=== PATIENT | male | born 1945 | race Caucasian/White ===

== ENCOUNTER 2018-11-16 14:11 | Outpatient (CLI) | payer MEDICARE, OTHER | END 2018-11-16 14:12 | disposition home or self-care (01) | LOC: RT 14:11 | PROVIDERS: ATTEND Orthopaedic Surgery | DX: Z01.810 Encounter for preprocedural cardiovascular examination (principal) | CPT/HCPCS: 93005 ==

== ENCOUNTER 2018-12-10 13:23 | Outpatient (CLI) | payer MEDICARE, OTHER ==
--- NOTE | 2018-12-11 11:01 | XRAY Report ---
Reason: PAIN IN LEFT HIP JOINT Procedure Date: 12/10/2018 Accession Number: [id number] / [id number] Procedure: XR - Hip w/Pelvis 2-3V LT CPT Code: FULL RESULT: EXAM: LEFT HIP RADIOGRAPHY EXAM DATE: 12/10/2018 02:11 PM. CLINICAL HISTORY: Pain in left hip joint. COMPARISON: None. TECHNIQUE: AP pelvis and left frog-leg. FINDINGS: Bones: Subjectively osteopenic. Lower lumbar spinal fusion hardware is incompletely evaluated. No fractures or bone lesion. Joints: There is joint space narrowing of both the left and right femoral acetabular articulations, moderate. No dislocation. Soft Tissues: Peripheral vascular disease is noted in the form of vessel calcification. IMPRESSION: Degenerative changes without evidence of fracture or dislocation. RADIA
== END 2018-12-10 13:24 | disposition home or self-care (01) ==
LOC: DI 13:23
PROVIDERS: ATTEND Internal Medicine
DX: M16.12 Unilateral primary osteoarthritis, left hip (principal)

== ENCOUNTER 2019-02-01 11:28 | Outpatient (CLI) | payer MEDICARE, OTHER ==
--- NOTE | 2019-02-01 14:50 | XRAY Report ---
Reason: PNEUMONITIS DUE TO INHALATION OF FOOD AND VOMIT Procedure Date: 02/01/2019 Accession Number: [id number] / [id number] Procedure: XR - Chest 2 View X-Ray CPT Code: 36634 FULL RESULT: EXAM: CHEST RADIOGRAPHY EXAM DATE: 02/01/2019 12:36 PM. CLINICAL HISTORY: PNEUMONITIS DUE TO INHALATION OF FOOD AND VOMIT. COMPARISON: None. TECHNIQUE: 2 views. FINDINGS: Lungs/Pleura: Coarse lung markings. Scarring or atelectasis left base. Possible minimal infiltrate in left base. No consolidation, effusion, or pneumothorax. Mediastinum: Heart and mediastinal contours are unremarkable. Other: Osteopenia, scoliosis, degenerative changes. IMPRESSION: Possible small left basilar infiltrate. RADIA
== END 2019-02-01 11:29 | disposition home or self-care (01) ==
LOC: DI 11:28
PROVIDERS: ATTEND Nurse Practitioner Family
DX: J69.8 Pneumonitis due to inhalation of other solids and liquids (principal); T75.1XXA Unspecified effects of drowning and nonfatal submersion, initial encounter
CPT/HCPCS: 71046

== ENCOUNTER 2019-05-21 09:48 | Outpatient (CLI) | payer MEDICARE, OTHER ==
--- NOTE | 2019-05-22 15:08 | XRAY Report ---
Reason: SHOULDER PAIN, UPPER CHEST PAIN,CERVICALGIA Procedure Date: 05/21/2019 Accession Number: [id number] / [id number] Procedure: XRS - Cervical Spine 2 View CPT Code: FULL RESULT: EXAM: CERVICAL SPINE RADIOGRAPHY EXAM DATE: 05/21/2019 11:00 AM. CLINICAL HISTORY: Shoulder pain, upper chest pain, cervicalgia. COMPARISONS: None. TECHNIQUE: 3 views. FINDINGS: Alignment: Relative straightening of the normal cervical lordosis without spondylolisthesis or overt scoliosis. Bones: The cervical vertebral bodies and posterior elements are well visualized from the skull base through C7-T1. No fractures or bone lesions. Disks: Multilevel loss of disk space height with disk osteophyte complex formation, most pronounced in the lower lumbar spine. Facets: Multilevel facet arthropathy with lateral mass hypertrophy throughout the cervical spine. Soft Tissues: Normal. No prevertebral soft tissue swelling. The visualized lung apices are clear. IMPRESSION: Marked degenerative changes throughout the cervical spine. RADIA
--- NOTE | 2019-05-22 15:09 | XRAY Report ---
Reason: SHOULDER PAIN,UPPER CHEST PAIN,CERVICALGIA Procedure Date: 05/21/2019 Accession Number: [id number] / [id number] Procedure: XRS - Chest 2 View X-Ray CPT Code: 38981 FULL RESULT: EXAM: CHEST RADIOGRAPHY EXAM DATE: 05/21/2019 11:00 AM. CLINICAL HISTORY: Shoulder pain, upper chest pain, cervicalgia. COMPARISON: CHEST 2 VIEW 02/01/2019 12:26 PM. TECHNIQUE: 2 views. FINDINGS: Lungs/Pleura: No focal opacities evident. No pleural effusion. No pneumothorax. Normal volumes. Mediastinum: Heart and mediastinal contours are unremarkable. Other: None. IMPRESSION: Normal 2-view chest radiography. RADIA
--- NOTE | 2019-05-23 03:24 | XRAY Report ---
Reason: SHOULDER PAIN, UPPER CHEST PAIN,CERVICALGIA Procedure Date: 05/21/2019 Accession Number: [id number] / [id number] Procedure: XRS - Shoulder 2 View BILAT CPT Code: FULL RESULT: EXAM: BILATERAL SHOULDER RADIOGRAPHY EXAM DATE: 05/21/2019 11:00 AM. CLINICAL HISTORY: SHOULDER PAIN, UPPER CHEST Pain, cervicalgia. COMPARISON: CHEST 2 VIEW 05/21/2019 10:20 AM. TECHNIQUE: 3 views. FINDINGS: Bones: Normal. No fracture or bone lesion. Joints: Glenohumeral joints are congruent. Moderate to advanced degenerative changes of the acromioclavicular joints bilaterally. Soft tissues: The visualized hemithorax is unremarkable. No soft tissue swelling. IMPRESSION: 1. No acute fractures or malalignment. 2. Moderate to advanced degenerative changes of the acromioclavicular joints bilaterally. RADIA
== END 2019-05-21 09:49 | disposition home or self-care (01) ==
LOC: DI.S 09:48
PROVIDERS: ATTEND Internal Medicine
DX: M19.012 Primary osteoarthritis, left shoulder (principal); M19.011 Primary osteoarthritis, right shoulder; M47.812 Spondylosis without myelopathy or radiculopathy, cervical region; R07.9 Chest pain, unspecified
CPT/HCPCS: 71046; 72040

== ENCOUNTER 2019-06-12 09:55 | Outpatient (CLI) | payer MEDICARE, OTHER ==
--- NOTE | 2019-06-13 05:49 | MRI Report ---
Reason: CERVICAL ARTHRITIS Procedure Date: 06/12/2019 Accession Number: [id number] / [id number] Procedure: MRI - Cervical Spine W/O CPT Code: FULL RESULT: EXAM: MRI CERVICAL SPINE WITHOUT CONTRAST EXAM DATE: 06/12/2019 11:34 AM. CLINICAL HISTORY: CERVICAL ARTHRITIS. COMPARISONS: CERVICAL SPINE 2 VIEW 05/21/2019 10:48 AM. TECHNIQUE: Multiplanar, multisequence T1-weighted and fluid-sensitive sequences of the cervical spine without contrast. Other: None. FINDINGS: Neurologic Structures: The visualized posterior fossa structures are unremarkable. No signal abnormality in the visualized spinal cord. There is cord flattening at multiple cervical levels from C3-C4 through C6-C7 due to spondylosis and spinal stenosis as detailed below. Alignment: No scoliosis or spondylolisthesis. Bone Marrow: No gross fractures or bone lesions. No marrow edema. Interspace Levels/Facets: C1-C2: Unremarkable. C2-C3: There is disk desiccation and mild disk bulging. No cord compression. Uncovertebral and facet hypertrophy causes mild left foraminal stenosis. No central canal or significant right foraminal stenosis. C3-C4: Mild disk narrowing and desiccation. Posterior endplate spurring and disk bulging along with bilateral ligamentum flavum thickening causes a moderate degree of central canal stenosis. Central canal measures approximately 6-7 mm in AP dimension. The cord appears moderately flattened. Uncovertebral and facet hypertrophy causes moderate bilateral foraminal stenosis. C4-C5: There is mild anterior spurring. There is mild to moderate disk narrowing and desiccation. Posterior spurring and disk bulging along with right greater than left ligamentum flavum thickening produces moderate central canal stenosis and cord flattening. Uncovertebral facet hypertrophy causes moderate to severe bilateral foraminal. C5-C6: There is anterior spurring and moderate disk narrowing and desiccation. There is posterior endplate spurring and disk bulging with a superimposed central disk protrusion measuring 4 mm in AP extent. This results in mild to moderate flattening of the ventral cord surface and mild to moderate central canal stenosis. Uncovertebral and facet hypertrophy results in moderate to severe bilateral foraminal stenosis. C6-C7: There is moderate disk narrowing and desiccation. Posterior endplate spurring and disk bulging effaces the ventral thecal sac. Slight flattening of the ventral cord surface on the right. Central canal is mildly narrowed. Uncovertebral and facet hypertrophy results in moderate to severe bilateral foraminal stenosis. C7-T1: There is moderate disk narrowing desiccation. There is a mild disk bulge effacing the ventral thecal sac. No cord compression or significant central canal stenosis. Uncinate hypertrophy results in moderate bilateral foraminal stenosis. Musculature: Unremarkable. Other: The paravertebral and prevertebral soft tissues are normal. IMPRESSION: 1. There is multilevel cervical spondylosis and degenerative disk disease/disk bulging superimposed on a congenitally small cervical spinal canal as detailed above. 2. At the C3-C4 and C4-C5 levels, spondylosis and disk bulging results in a moderate degree of central canal stenosis and cord flattening. There is also moderate to severe bilateral foraminal stenosis at both levels. 3. At C5-C6, there is spondylosis and disk bulging with a superimposed 4 mm central disk protrusion. This results in mild to moderate canal stenosis with flattening of the ventral cord surface. There is moderate to severe bilateral foraminal stenosis. 4. At C6-C7, spondylosis and disk bulging results in mild central canal stenosis and moderate to severe bilateral foraminal stenosis. There is only slight flattening of the ventral cord surface on the right at this level. 5. At C7-T1, there is moderate bilateral foraminal narrowing. No cord compression or significant canal stenosis. 6. No signal abnormality is identified in the cervical cord. RADIA
== END 2019-06-12 09:56 | disposition home or self-care (01) ==
LOC: DI 09:55
PROVIDERS: ATTEND Internal Medicine
DX: M50.31 Other cervical disc degeneration, high cervical region (principal); M48.02 Spinal stenosis, cervical region; M47.812 Spondylosis without myelopathy or radiculopathy, cervical region; M50.222 Other cervical disc displacement at C5-C6 level
CPT/HCPCS: 72141

== ENCOUNTER 2019-11-29 07:22 | Outpatient (CLI) | payer MEDICARE, OTHER ==
[2019-11-29 10:01] LABS: BASOPHILS # (AUTO) 0.1 10^3/uL (0.0-0.1); BASOPHILS % (AUTO) 0.6 %; EOSINOPHILS # (AUTO) 0.1 10^3/uL (0.0-0.7); EOSINOPHILS % (AUTO) 1.5 %; HGB - HEMOGLOBIN 14.8 g/dL (14.0-18.0); LYMPHOCYTES # (AUTO) 1.8 10^3/uL (1.5-3.5); LYMPHOCYTES % (AUTO) 21.7 %; MEAN CORPUSCULAR HEMOGLOBIN 30.3 pg (27.0-31.0); MEAN CORPUSCULAR HGB CONC 33.3 g/dL (32.0-36.0); MEAN CORPUSCULAR VOLUME 90.8 fL (80.0-94.0); MEAN PLATELET VOLUME 9.4 fL (7.4-11.4); MONOCYTES # (AUTO) 0.5 10^3/uL (0.0-1.0); MONOCYTES % (AUTO) 6.3 %; NEUTROPHILS # (AUTO) 5.6 10^3/uL (1.5-6.6); NEUTROPHILS % (AUTO) 69.5 %; PLT - PLATELET COUNT 209 10^3/uL (130-450); RED BLOOD COUNT 4.89 10^6/uL (4.70-6.10); RED CELL DISTRIBUTION WIDTH 12.7 % (12.0-15.0); WHITE BLOOD COUNT 8.1 x10^3/uL (4.8-10.8)
[2019-11-29 10:09] LABS: HB2 TOTAL 14.5 g/dL; HEMOGLOBIN A1C 0.51 g/dL; HEMOGLOBIN A1C % 5.4 % (4.6-6.2)
[2019-11-29 10:26] LABS: ALBUMIN 4.4 g/dL (3.2-5.5); ALBUMIN/GLOBULIN RATIO 1.4 (1.0-2.2); ALKALINE PHOSPHATASE 55 IU/L (42-121); ALT ALANINE AMINOTRANSFERASE < 10 IU/L (10-60); AST ASPARTATE AMINOTRANSFERASE 40 IU/L (10-42); BILIRUBIN,TOTAL 0.9 mg/dL (0.2-1.0); BUN - BLOOD UREA NITROGEN 18 mg/dL (6-20); CALCIUM 9.3 mg/dL (8.5-10.3); CARBON DIOXIDE - CO2 29 mmol/L (21-32); CHLORIDE 104 mmol/L (101-111); CHOL/HDL RATIO 2.9 (<5.0); CHOLESTEROL 158 mg/dL; CREATININE 0.7 mg/dL (0.6-1.2); CRP HIGH SENSITIVITY 0.9 mg/L; GFR - MDRD 111 (>89); GLUCOSE 95 mg/dL (70-100); HDL CHOLESTEROL 54 mg/dL; LDL CHOLESTEROL,CALCULATED 92 mg/dL; LDL/HDL RATIO 1.7 (<3.6); SODIUM 143 mmol/L (135-145); TOTAL PROTEIN 7.6 g/dL (6.7-8.2); VLDL CHOLESTEROL 12 mg/dL
[2019-11-29 10:28] LABS: PSA TOTAL 0.93 ng/mL (0.000-2.000)
[2019-11-29 10:32] LABS: FREE T3 2.71 pg/mL (2.5-3.9)
[2019-11-29 10:35] LABS: THYROID STIMULATING HORMONE 2.84 uIU/mL (0.34-5.60)
[2019-11-29 10:37] LABS: FREE T4 (FREE THYROXINE) 0.6 ng/dL (0.58-1.64)
== END 2019-11-29 07:23 | disposition home or self-care (01) ==
LOC: LAB.S 07:22
PROVIDERS: ATTEND Naturopath
DX: Z00.01 Encounter for general adult medical examination with abnormal findings (principal); Z12.5 Encounter for screening for malignant neoplasm of prostate; Z13.0 Encounter for screening for diseases of the blood and blood-forming organs and certain disorders involving the immune mechanism; Z13.1 Encounter for screening for diabetes mellitus; Z13.21 Encounter for screening for nutritional disorder; Z13.220 Encounter for screening for lipoid disorders; Z13.6 Encounter for screening for cardiovascular disorders; G20 Parkinson's disease
CPT/HCPCS: 36415; 80053; 80061; 81599; 82306; 83036; 83520; 83721; 84153; 84439; 84443; 84481; 84482; 85025; 86038; 86039; 86141; 86376

== ENCOUNTER 2020-01-15 17:50 | Outpatient (CLI) | payer MEDICARE, OTHER | END 2020-01-15 17:51 | disposition home or self-care (01) | LOC: COV 17:50 | PROVIDERS: ATTEND Family Medicine | DX: R05 Cough (principal); R50.9 Fever, unspecified ==

== ENCOUNTER 2020-06-10 13:13 | Outpatient (CLI) | payer MEDICARE, OTHER ==
--- NOTE | 2020-06-10 15:26 | Ultrasound Report ---
PROCEDURE: Carotid Doppler Complete INDICATIONS: CVA TECHNIQUE: Color and pulse Doppler interrogation was performed of both carotid systems, with image documentation and velocity measurements. COMPARISON: None. FINDINGS: Right side: Common carotid artery peak systolic velocity: 89 cm/sec. Internal carotid artery peak systolic velocity: 111 cm/sec. Internal carotid artery end diastolic velocity: 19 cm/sec. External carotid artery peak systolic velocity: 12 cm/sec. ICA/CCA peak systolic ratio: 1.2 . Wells scale imaging description: Minimal soft plaque Percent internal carotid artery stenosis: Less than 50% stenosis . Vertebral artery: Flow direction is antegrade. Left side: Common carotid artery peak systolic velocity: 116 cm/sec. Internal carotid artery peak systolic velocity: 97 cm/sec. Internal carotid artery end diastolic velocity: 17 cm/sec. External carotid artery peak systolic velocity: 154 cm/sec. ICA/CCA peak systolic ratio: 0.8 . Wells scale imaging description: Moderate calcific and soft plaque Percent internal carotid artery stenosis: Less than 50% stenosis . Vertebral artery: Flow direction is antegrade. IMPRESSION: Less than 50% stenosis of each proximal internal carotid artery, vertebral arterial flow is antegrade in direction. The estimate of stenosis included in the report of the imaging study was calculated using the NASCET method Reviewed by: Dom Villanueva MD on 06/10/2020 3:25 PM PDT Approved by: Dom Villanueva MD on 06/10/2020 3:25 PM PDT Station ID: [id number]
== END 2020-06-10 13:14 | disposition home or self-care (01) ==
LOC: DI 13:13
PROVIDERS: ATTEND Psychiatry & Neurology Neurology
DX: I63.9 Cerebral infarction, unspecified (principal)
CPT/HCPCS: 93880

== ENCOUNTER 2020-08-15 16:11 | Outpatient (CLI) | payer MEDICARE, OTHER | END 2020-08-15 16:12 | disposition critical access hospital (66) | LOC: EMS 16:11 | PROVIDERS: ATTEND Surgery | DX: S89.92XA Unspecified injury of left lower leg, initial encounter (principal); S01.312A Laceration without foreign body of left ear, initial encounter; W19.XXXA Unspecified fall, initial encounter; Y93.K9 Activity, other involving animal care; Y92.481 Parking lot as the place of occurrence of the external cause | CPT/HCPCS: A0425; A0427 ==

== ENCOUNTER 2020-08-15 16:48 | Inpatient (IN) | payer MEDICARE, OTHER ==
[2020-08-15] MEDS ORDERED: HYDROmorphone 1 MG/ML CARPUJECT IVP STA ×2 (17:19→18:17)
[2020-08-15] MEDS ORDERED: CARBIDOPA/LEVODOPA ER 50 MG/200 MG TABLET PO STA (17:20)
--- NOTE | 2020-08-15 17:31 | ED Physician Documentation ---
History of Present Illness - Stated complaint Stated Complaint: GLF - Chief complaint Chief Complaint: Trauma Ext - History obtained from History obtained from: Patient, EMS - History of Present Illness Timing: Today Pain level max: 8 Pain level now: 8 - Additonal information Additional information: 75-year-old male presents to the emergency department after a ground-level fall. He was walking in a parking lot when he tripped, fell and injured his left hip. Struck his head and neck as well. Has Parkinson's. Worse with movement, better with rest. Review of Systems Constitutional: denies: Fever, Chills Nose: denies: Rhinorrhea / runny nose, Congestion Cardiac: denies: Calf pain Respiratory: denies: Cough GI: denies: Nausea, Vomiting PD PAST MEDICAL HISTORY - Past Medical History Past Medical History: Yes Neuro: Parkinson's Musculoskeletal: Chronic back pain - Past Surgical History Past Surgical History: Yes Ortho: Spine surgery - Present Medications Home Medications: Ambulatory Orders Medication Instructions Recorded Confirmed Amantadine HCl [Amantadine] 100 mg PO DAILY 08/15/20 08/15/20 Carbidopa/Levodopa ER 50/200 1 each PO BID 08/15/20 08/15/20 [Sinemet Cr 50 mg/200 mg] - Allergies Allergies/Adverse Reactions: Allergies Allergy/AdvReac Type Severity Reaction Status Date / Time No Known Drug Allergies Allergy Verified 08/15/20 17:02 - Social History Does the pt smoke?: No Smoking Status: Never smoker Does the pt drink ETOH?: No Does the pt have substance abuse?: No Substance Use and Type: Marijuana - Immunizations Immunizations are current?: Yes PD ED PE NORMAL - Vitals Vital signs reviewed: Yes - General General: Alert and oriented X 3, No acute distress, Well developed/nourished - HEENT HEENT: Atraumatic, PERRL, Ears normal, Moist mucous membranes - Neck Neck: Supple, no meningeal sign, Other (mild TTP upper C-spine. no step off or deformity. ) - Cardiac Cardiac: RRR, Strong equal pulses - Respiratory Respiratory: No respiratory distress, Clear bilaterally - Abdomen Abdomen: Soft, Non tender, Non distended - Back Back: No spinal TTP - Derm Derm: Warm and dry - Extremities Extremities: No edema, No calf tenderness / cord - Neuro Neuro: Alert and oriented X 3, senior program manager 2-12 intact, No motor deficit, No sensory deficit, Normal speech Eye Opening: Spontaneous Motor: Obeys Commands Verbal: Oriented GCS Score: 15 - Psych Psych: Normal mood, Normal affect Results - Vitals Vitals: Vital Signs - 24 hr 08/15/20 08/15/20 08/15/20 16:50 17:04 17:32 Temperature 36.5 C 36.5 C 36.5 C Heart Rate 86 86 91 Respiratory 30 H 30 H 22 Rate Blood Pressure 181/85 H 181/85 H 155/74 H O2 Saturation 99 99 100 08/15/20 08/15/20 08/15/20 18:02 18:30 18:59 Temperature 36.5 C 36.5 C 36.5 C Heart Rate 88 91 89 Respiratory 24 24 20 Rate Blood Pressure 158/76 H 156/78 H 155/74 H O2 Saturation 99 100 100 Oxygen O2 Source Room air - EKG (time done) 1821 Rate: Rate (enter#) (87) Rhythm: NSR [place]: Normal Intervals: Normal FL QRS: Normal Ischemia: Normal ST segments - Labs Labs: Laboratory Tests 08/15/20 08/15/20 17:25 17:25 WBC 9.9 RBC 5.16 Hgb 15.7 Hct 46.5 MCV 90.1 MCH 30.4 MCHC 33.8 RDW 12.8 Plt Count 227 MPV 8.9 Neut # (Auto) 7.7 H Lymph # (Auto) 1.4 L Catron # (Auto) 0.6 Eos # (Auto) 0.1 Baso # (Auto) 0.1 Absolute Nucleated RBC 0.00 Nucleated RBC % 0.0 Sodium 141 Potassium 3.8 Chloride 102 Carbon Dioxide 25 Anion Gap 14.0 H BUN 19 Creatinine 0.9 Estimated GFR (MDRD) 83 L Glucose 127 H Calcium 9.8 Total Bilirubin 1.1 H AST 32 ALT 14 Alkaline Phosphatase 64 Total Protein 7.9 Albumin 4.5 Globulin 3.4 Albumin/Globulin Ratio 1.3 Lipase 22 - Rads (name of study) CT head Radiology: Prelim report reviewed, EMP read contemporaneously, See rad report (no acute abnormality.) CT c-spine Radiology: Prelim report reviewed, EMP read contemporaneously, See rad report (no acute abnormality.) cxr Radiology: Prelim report reviewed, EMP read contemporaneously, See rad report (Clear lungs. ) L hip xray Radiology: Prelim report reviewed, EMP read contemporaneously, See rad report (There is an impacted, comminuted fracture of the intertrochanteric left femoral neck. There is an avulsion fracture of the lesser trochanter and a likely additional fracture of the greater trochanter. ) PD MEDICAL DECISION MAKING - ED course Complexity details: reviewed old records, reviewed results, re-evaluated patient, considered differential, d/w patient, d/w automotive service consultant ED course: 75-year-old male presents to the emergency department after a fall today. Has a history of Parkinson's. Has a left impacted femoral neck fracture. Pain well controlled. Discussed the case with Dr. Gutierrez, orthopedics who will consult on the patient and plan for the OR. Discussed the case with Dr. Quinn, hospitalist who accepts. This document was made in part using voice recognition software. While efforts are made to proofread this document, sound alike and grammatical errors may occur. Departure - Departure Disposition: 66 [facility] DC/Xfer Clinical Impression: Hip fracture, left Qualifiers: Encounter type: initial encounter Fracture type: closed Qualified Code(s): S72.002A - Fracture of unspecified part of neck of left femur, initial encounter for closed fracture Condition: Stable Discharge Date/Time: 08/15/20 20:03
[2020-08-15 17:37] LABS: BASOPHILS # (AUTO) 0.1 10^3/uL (0.0-0.1); BASOPHILS % (AUTO) 0.7 %; EOSINOPHILS # (AUTO) 0.1 10^3/uL (0.0-0.7); EOSINOPHILS % (AUTO) 1.3 %; HGB - HEMOGLOBIN 15.7 g/dL (14.0-18.0); LYMPHOCYTES # (AUTO) 1.4 10^3/uL (1.5-3.5); LYMPHOCYTES % (AUTO) 13.7 %; MEAN CORPUSCULAR HEMOGLOBIN 30.4 pg (27.0-31.0); MEAN CORPUSCULAR HGB CONC 33.8 g/dL (32.0-36.0); MEAN CORPUSCULAR VOLUME 90.1 fL (80.0-94.0); MEAN PLATELET VOLUME 8.9 fL (7.4-11.4); MONOCYTES # (AUTO) 0.6 10^3/uL (0.0-1.0); MONOCYTES % (AUTO) 5.9 %; NEUTROPHILS # (AUTO) 7.7 10^3/uL (1.5-6.6); NEUTROPHILS % (AUTO) 77.7 %; PLT - PLATELET COUNT 227 10^3/uL (130-450); RED BLOOD COUNT 5.16 10^6/uL (4.70-6.10); RED CELL DISTRIBUTION WIDTH 12.8 % (12.0-15.0); WHITE BLOOD COUNT 9.9 x10^3/uL (4.8-10.8)
[2020-08-15 17:47] LABS: ALBUMIN 4.5 g/dL (3.2-5.5); ALBUMIN/GLOBULIN RATIO 1.3 (1.0-2.2); BILIRUBIN,TOTAL 1.1 mg/dL (0.2-1.0); CALCIUM 9.8 mg/dL (8.5-10.3); CREATININE 0.9 mg/dL (0.6-1.2); TOTAL PROTEIN 7.9 g/dL (6.7-8.2)
--- NOTE | 2020-08-15 18:08 | CT Report ---
PROCEDURE: HEAD WO INDICATIONS: fall, head injury TECHNIQUE: Noncontrast 4.5 mm thick angled axial sections acquired from the foramen magnum to the vertex. For r adiation dose reduction, the following was used: automated exposure control, adjustment of mA and/or kV according to patient size. COMPARISON: Correlation is made with the accompanying cervical spine CT, 08/15/2020. FINDINGS: Image quality: Excellent. CSF spaces: Basal cisterns are patent. No extra-axial fluid collections. Ventricles are normal in size and shape. Brain: No midline shift. No intracranial masses or hemorrhage. Wells-white matter interface is norm al. Brain parenchymal volume loss is seen. Chronic small vessel ischemic changes are seen. Skull and face: Calvarium and visualized facial bones are intact, without suspicious lesions. Sinuses: Visualized sinuses and mastoids are clear. IMPRESSION: No intracranial hemorrhage is seen. No significant intracranial abnormality is seen. Age-appropriate brain parenchymal volume loss and chronic small vessel ischemic change can be seen. Reviewed by: Benoit Hodges MD on 08/15/2020 5:07 PM JONNIE Approved by: Benoit Hodges MD on 08/15/2020 5:07 PM JONNIE Station ID: [id number]
--- NOTE | 2020-08-15 18:10 | CT Report ---
PROCEDURE: CERVICAL SPINE WO INDICATIONS: fall, neck pain TECHNIQUE: Noncontrast 3 mm thick sections acquired from the skull base to the T4 level. Sagittal and coronal r eformats were then constructed. For radiation dose reduction, the following was used: automated exp osure control, adjustment of mA and/or kV according to patient size. COMPARISON: Correlation is made with the accompanying head CT, 08/15/2020. FINDINGS: Image quality: Excellent. Bones: No fractures or dislocations. Visualized superior ribs are intact. Relatively prominent degenerative changes are seen throughout, with at least moderate disc space narr owing at C3-C4, with moderate to severe disc space narrowing at C4-C5, C5-C6, and C6-C7. Posterior di rected endplate osteophytes are seen inferiorly. Partially bridging anterior osteophytes are seen fro m at least C4-T1. Focal degenerative change can also be seen involving the C1-C2 interface anteriorly . Milder degenerative changes are seen elsewhere. Soft tissues: Prevertebral soft tissues are normal in thickness. No paravertebral hematomas. No ap ical pneumothoraces. IMPRESSION: No acute fractures are detected. Prominent lower cervical spine degenerative changes are seen. Reviewed by: Benoit Hodges MD on 08/15/2020 5:08 PM JONNIE Approved by: Benoit Hodges MD on 08/15/2020 5:08 PM JONNIE Station ID: [id number]
--- NOTE | 2020-08-15 18:21 | XRAY Report ---
PROCEDURE: Hip w/Pelvis 2-3V LT INDICATIONS: fall, L hip pain TECHNIQUE: AP pelvis with lateral view(s) of the bilateral hip(s). COMPARISON: Prior left hip plain films, 12/10/2018 FINDINGS: Bones: There is a moderately displaced, impacted fracture seen involving the intertrochanteric left f emoral neck. There is avulsion of the lesser trochanter and an apparent minimally displaced fracture of the greater trochanter. No hip dislocation is seen. No definite fractures of the bones of the pelvis can be seen. Degenerative and postoperative changes can be seen of the lumbosacral spine. Soft tissues: The visualized bowel gas pattern is normal. No suspicious soft tissue calcifications. Atherosclerotic calcification is seen. IMPRESSION: There is an impacted, comminuted fracture of the intertrochanteric left femoral neck. There is an avulsion fracture of the lesser trochanter and a likely additional fracture of the greate r trochanter. Reviewed by: Benoit Hodges MD on 08/15/2020 5:20 PM JONNIE Approved by: Benoit Hodges MD on 08/15/2020 5:20 PM JONNIE Station ID: [id number]
--- NOTE | 2020-08-15 19:00 | XRAY Report ---
PROCEDURE: Chest 1 View X-Ray INDICATIONS: chest pain TECHNIQUE: One view of the chest was acquired. COMPARISON: 05/21/2019 FINDINGS: Surgical changes and devices: None. Lungs and pleura: No pleural effusions or pneumothorax. Lungs are clear. Mediastinum: Mediastinal contours appear normal. Heart size is normal. Bones and chest wall: No suspicious bony lesions. Mild dextroconvex scoliotic curvature is seen. Age -appropriate degenerative changes are seen. Overlying soft tissues appear unremarkable. IMPRESSION: Clear lungs. Dextroconvex scoliotic curvature. Reviewed by: Benoit Hodges MD on 08/15/2020 5:59 PM AKDT Approved by: Benoit Hogdes MD on 08/15/2020 5:59 PM AKDT Station ID: [id number]
[2020-08-15] MEDS ORDERED: ONDANSETRON 4 MG/2 ML VIAL IVP PRN (19:35)
[2020-08-15] MEDS ORDERED: ACETAMINOPHEN 325 MG TABLET PO PRN (19:35)
[2020-08-15] MEDS ORDERED: ONDANSETRON ODT 4 MG TABLET TL PRN (19:35)
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
[2020-08-15] MEDS: MORPHINE 2 MG/ML CARPUJECT IVP PRN ×2 (20:12→22:09)
[2020-08-15] MEDS: CALCIUM CARBONATE CHEW 500 MG TABLET PO SCH (21:26)
[2020-08-15] MEDS: CARBIDOPA/LEVODOPA ER 50 MG/200 MG TABLET PO SCH (21:31)
[2020-08-15] MEDS: KETOROLAC 30 MG/ML VIAL IVP PRN (21:58)
[2020-08-16] MEDS: MORPHINE 2 MG/ML CARPUJECT IVP PRN ×3 (00:49→06:42)
[2020-08-16] MEDS: SODIUM CHLORIDE FLUSH 0.9% 10 ML SYRINGE IVP SCH ×4 (00:50→16:47)
[2020-08-16] MEDS: CARBIDOPA/LEVODOPA ER 50 MG/200 MG TABLET PO SCH ×2 (01:51→06:49)
[2020-08-16] MEDS: KETOROLAC 30 MG/ML VIAL IVP PRN (03:44)
[2020-08-16] MEDS: SODIUM CHLORIDE FLUSH 0.9% 10 ML SYRINGE IVP PRN (03:54)
[2020-08-16] MEDS ORDERED: ceFAZolin 2 GM in SODIUM CHLORIDE 0.9% 100ML 100 ML IV ONE (05:09)
[2020-08-16 06:12] LABS: BASOPHILS # (AUTO) 0.1 10^3/uL (0.0-0.1); BASOPHILS % (AUTO) 0.5 %; EOSINOPHILS # (AUTO) 0.2 10^3/uL (0.0-0.7); EOSINOPHILS % (AUTO) 1.5 %; HGB - HEMOGLOBIN 13.5 g/dL (14.0-18.0); LYMPHOCYTES # (AUTO) 1.8 10^3/uL (1.5-3.5); MEAN CORPUSCULAR HEMOGLOBIN 30.6 pg (27.0-31.0); MEAN CORPUSCULAR HGB CONC 33.3 g/dL (32.0-36.0); MEAN CORPUSCULAR VOLUME 92.1 fL (80.0-94.0); MEAN PLATELET VOLUME 8.6 fL (7.4-11.4); MONOCYTES # (AUTO) 0.7 10^3/uL (0.0-1.0); MONOCYTES % (AUTO) 6.5 %; NEUTROPHILS # (AUTO) 8.2 10^3/uL (1.5-6.6); NEUTROPHILS % (AUTO) 74.8 %; PLT - PLATELET COUNT 180 10^3/uL (130-450); RED BLOOD COUNT 4.41 10^6/uL (4.70-6.10); RED CELL DISTRIBUTION WIDTH 12.8 % (12.0-15.0)
[2020-08-16 06:24] LABS: CALCIUM 8.9 mg/dL (8.5-10.3); CREATININE 0.9 mg/dL (0.6-1.2)
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
[2020-08-16] MEDS: CALCIUM CARBONATE CHEW 500 MG TABLET PO SCH ×3 (07:42→21:03)
--- NOTE | 2020-08-16 08:10 | ANESTHESIA ---
Pre-Anesthesia VS, & Labs - Diagnosis left hip fracture - Procedure short intertan nailing left hip Vital Signs: Temp Pulse Resp BP Pulse Ox 36.7 C 73 16 132/65 H 99 08/16/20 07:46 08/16/20 07:46 08/16/20 07:46 08/16/20 07:46 08/16/20 07:46 Height: 5 ft 9 in Weight (kg): 61.5 kg Body Mass Index: 20.0 BMI Classification: Healthy weight - NPO >8 hours - Lab Results Current Lab Results: Laboratory Tests 08/16/20 06:00: Sodium 141, Potassium 3.7, Chloride 101, Carbon Dioxide 27, Anion Gap 13.0, BUN 20, Creatinine 0.9, Estimated GFR (MDRD) 83 L, Glucose 109 H , Calcium 8.9 08/16/20 06:00: WBC 11.0 H, RBC 4.41 L, Hgb 13.5 L, Hct 40.6 L, MCV 92.1, MCH 30.6, MCHC 33.3, RDW 12.8, Plt Count 180, MPV 8.6, Neut # (Auto) 8.2 H, Lymph # (Auto) 1.8, [place] # (Auto) 0.7, Eos # (Auto) 0.2, Baso # (Auto) 0.1, Absolute Nucleated RBC 0.00, Nucleated RBC % 0.0 08/15/20 17:25: Sodium 141, Potassium 3.8, Chloride 102, Carbon Dioxide 25, Anion Gap 14.0 H, BUN 19, Creatinine 0.9, Estimated GFR (MDRD) 83 L, Glucose 127 H, Calcium 9.8, Total Bilirubin 1.1 H, AST 32, ALT 14, Alkaline Phosphatase 64, Total Protein 7.9, Albumin 4.5, Globulin 3.4, Albumin/Globulin Ratio 1.3, Lipase 22 08/15/20 17:25: WBC 9.9, RBC 5.16, Hgb 15.7, Hct 46.5, MCV 90.1, MCH 30.4, MCHC 33.8, RDW 12.8, Plt Count 227, MPV 8.9, Neut # (Auto) 7.7 H, Lymph # (Auto) 1.4 L, [place] # (Auto) 0.6, Eos # (Auto) 0.1, Baso # (Auto) 0.1, Absolute Nucleated RBC 0.00, Nucleated RBC % 0.0 Fish Bones: 08/16/20 06:00 08/16/20 06:00 Home Medications and Allergies Home Medications: Ambulatory Orders Amantadine HCl [Amantadine] 100 mg PO DAILY 08/15/20 Carbidopa/Levodopa ER 50/200 [Sinemet Cr 50 mg/200 mg] 1 each PO BID 08/15/20 Active Medications Acetaminophen (Tylenol) 650 mg PO Q4HR PRN PRN Reason: Pain 1 to 4 Amantadine HCl (Symmetrel) 100 mg PO BID [facility] Calcium Carbonate/Glycine (Tums) 500 mg PO TID [facility] Last Admin: 08/16/20 07:42 Dose: Not Given Documented by: Carbidopa/Levodopa (Sinemet Cr 50 Mg/200 Mg) 1 tab PO Q4H [facility] Last Admin: 08/16/20 06:49 Dose: 1 tab Documented by: Cholecalciferol (Vitamin D3) 800 unit PO DAILY [facility] Enoxaparin Sodium (Lovenox) 40 mg SUBQ DAILY [facility] Ketorolac Tromethamine (Toradol Inj (30mg)) 30 mg IVP Q6HR PRN PRN Reason: PAIN Stop: 08/20/20 20:33 Last Admin: 08/16/20 03:44 Dose: 30 mg Documented by: Morphine Sulfate (Morphine (Carpuject)) 2 mg IVP Q2HR PRN PRN Reason: Pain 8 to 10 Last Admin: 08/16/20 06:42 Dose: 2 mg Documented by: Ondansetron HCl (Zofran Odt) 4 mg TL Q6HR PRN PRN Reason: Nausea / Vomiting Ondansetron HCl (Zofran Inj) 4 mg IVP Q6HR PRN PRN Reason: Nausea / Vomiting Sodium Chloride (Normal Saline Flush 0.9%) 10 ml IVP PRN PRN PRN Reason: NEEDED PER PROVIDER ORDERS Last Admin: 08/16/20 03:54 Dose: 10 ml Documented by: Sodium Chloride (Normal Saline Flush 0.9%) 10 ml IVP 0100,0900,1700 [facility] Last Admin: 08/16/20 00:50 Dose: 10 ml Documented by: Amantadine HCl [Amantadine] 100 mg PO DAILY 08/15/20 Carbidopa/Levodopa ER 50/200 [Sinemet Cr 50 mg/200 mg] 1 each PO BID 08/15/20 Allergies/Adverse Reactions: Allergies Allergy/AdvReac Type Severity Reaction Status Date / Time No Known Drug Allergies Allergy Verified 08/15/20 17:02 Anes History & Medical History - Anesthetic History Anesthesia Complications: reports: No previous complications - Medical History Cardiovascular: reports: None Pulmonary: reports: None Gastrointestinal: reports: None Neuro: reports: Parkinson's Musculoskeletal: reports: Chronic back pain Smoking Status: Never smoker - Surgical History Orthopedic: Spine surgery Exam General: Alert, Oriented x3 Mouth Opening: Can't Open Mouth Neck Mobility: Normal Mallampati classification: II Respiratory: Lungs clear Cardiovascular: Regular rate Plan Anesthesia Type: General Consent for Procedure(s) Verified and Reviewed: Yes Code Status: Attempt Resuscitation ASA classification: 2-Mild systemic disease Is this case an emergency?: Yes
[2020-08-16] MEDS ORDERED: BUPIVACAINE 0.25%-EPI 1:200000 PF 30 ML VIAL ONE (08:16)
--- NOTE | 2020-08-16 08:59 | CONSULTATION NOTE ---
DATE OF SERVICE: 08/16/2020 Physician: Ta Gutierrez MD REFERRING PHYSICIAN: Dr. Manohar Chakraborty in the emergency room department. CHIEF COMPLAINT: "I broke my left hip." HISTORY OF PRESENT ILLNESS: Anurag Arauz is a 75-year-old male with Parkinson's, who appare ntly stumbled in the parking lot and fell onto his left side last afternoon. He noted immediate pain and deformity to his left lower leg. He was unable to stand or weightbear. He was taken by jasen rob to the emergency room here at [facility] where his evaluation and x-rays led to the diagnosis of a comminuted left intertrochanteric hip fracture. The patient had no loss of consciousn ess or other injuries noted. No nausea or vomiting noted. No prior hip fractures noted. No distal weakness or numbness noted. PHYSICAL EXAMINATION: The patient's vital signs were stable. The patient had pain with range of mot ion of the left hip. The left leg was slightly shortened and minimally malrotated. The patient had tenderness primarily over the lateral aspect of the left hip. The patient was able to voluntarily a ctively move the toes in flexion and extension. Sensation appeared to be grossly intact and symmetri andi. Good capillary filling of the toes were noted. X-RAYS: Showed a comminuted, mildly angulated left intertrochanteric hip fracture. ASSESSMENT 1. Closed mildly angulated left intertrochanteric hip fracture. 2. Parkinsonism. PLAN: The patient has been cleared by the medical service to proceed with surgical fixation of this fracture. I discussed treatment options with the patient today. I answered his questions. Some of the complications that could occur for surgical infection intervention would include anesthesia risks , malunion, nonunion, hardware failure, blood loss, nerve damage, wound infection, blood clots, etc. The patient appears to understand these potential risks as well as the benefits of surgery. He wishe s to proceed with surgery as planned. All of his questions were answered. Consent has been signed. The leg has been marked. TD: 08/16/2020 07:51
[2020-08-16] MEDS ORDERED: BUPIVACAINE 0.25%-EPI 1:200000 PF 30 ML VIAL SUBQ ONE ×2 (09:33)
[2020-08-16] MEDS ORDERED: SODIUM CHLORIDE FLUSH 0.9% 10 ML SYRINGE IVP PRN (10:51)
[2020-08-16] MEDS ORDERED: ACETAMINOPHEN 325 MG TABLET PO PRN (10:51)
[2020-08-16] MEDS ORDERED: PROCHLORPERAZINE 10 MG/2 ML VIAL IVP PRN (10:51)
[2020-08-16] MEDS ORDERED: ONDANSETRON 4 MG/2 ML VIAL IVP PRN (10:51)
[2020-08-16] MEDS ORDERED: MORPHINE 2 MG/ML CARPUJECT IVP PRN (10:51)
--- NOTE | 2020-08-16 10:59 | OPERATIVE REPORT ---
Operative Report - General Admit Date: 08/15/20 Procedure Date: 08/16/20 Planned Procedure: InterTan nailing of left hip fracture Pre-Op Diagnosis: Left intertrochanteric hip fracture; Parkinsonism Procedure Performed: Closed reduction and short interTan nailing of left hip fracture Post Op Diagnosis: Same - Procedure Note Primary Surgeon: Varun Gutierrez MD Anesthesia Provider: Wai Rosario CRNA Anesthesia Technique: General ET tube IV Fluids (mL): 1,000 Estimated Blood Loss (mL): 150 Complications: None
[2020-08-16] MEDS ORDERED: LACTATED RINGERS 1,000 ML IV ONE ×2 (11:08→11:40)
--- NOTE | 2020-08-16 11:57 | PHARMACY PROGRESS NOTE ---
- Best Possible Medication History Admit Date and Time: 08/15/201934 Processed by: Pharmacy Medication History completed: Yes Patient Interview: Completed Secondary Source(s): Caregiver (PATIENT UNABLE TO PARTICIPATE IN INTERVIEW. SPOKE WITH WHO HAD A MEDICATION LIST ON HAND ), Pharmacy records, Insurance records As the person ultimately responsible for medication therapy, providers are able to order a medication from an existing home medication list in [facility] via the "Reconcile Routine" prior to Confirmation of that medication by account support associate. Such practice is discouraged except when the physician, in their clinical judgment, deems that a medical need exists for a medication without regard to previous use.
[2020-08-16] MEDS: SODIUM CHLORIDE 0.9% 1,000 ML IV SCH ×2 (12:04→22:18)
[2020-08-16] MEDS: AMANTADINE 100 MG CAPSULE PO SCH ×2 (12:06→21:00)
[2020-08-16] MEDS ORDERED: AMANTADINE HCL 100 MG PO SCH (13:15)
[2020-08-16] MEDS: [UNRECOGNIZED DRUG - OTHER] PO SCH ×3 (13:21→21:01)
[2020-08-16] MEDS: ENTACAPONE PO SCH ×3 (13:21→21:01)
[2020-08-16] MEDS: CARBIDOPA PO SCH ×3 (13:21→21:01)
[2020-08-16] MEDS: LEVODOPA PO SCH ×3 (13:21→21:01)
[2020-08-16] MEDS: ceFAZolin 2 GM in SODIUM CHLORIDE 0.9% 100ML 100 ML IV SCH ×2 (15:21→22:18)
--- NOTE | 2020-08-16 16:21 | OPERATIVE REPORT ---
DATE OF SERVICE: 08/16/2020 Physician: Ta Gutierrez MD PREOPERATIVE DIAGNOSIS(ES): Closed, angulated left intertrochanteric hip fracture; parkinsonism. POSTOPERATIVE DIAGNOSIS(ES): Closed, angulated left intertrochanteric hip fracture; parkinsonism. PROCEDURE PERFORMED: Closed reduction and short Intertan nailing of left hip fracture. SURGEON: Ta Gutierrez MD ANESTHESIA: General. DESCRIPTION OF PROCEDURE: Patient was taken to the operating room on the morning of 08/16/2020 where he was placed under general anesthetic without any complications. He was then positioned supine on the fracture table. The right unfractured lower extremity then had the hip flexed and widely abducte d and held in a well leg fontanez. The fractured left extremity was then placed into axial traction, w ith the leg internally rotated about 40 degrees. Fluoroscopic view showed that we could visualize th e hip well and the fracture well. The fracture was reasonably aligned in axial traction as well. We then prepped and draped the lateral aspect of the left hip in the usual fashion for our procedure. Making an oblique skin incision just proximal to the tip of the greater trochanter, we dissected down to the tip of the greater trochanter. This is where we placed a threaded-tip guidewire from our set . Under power, we then advanced this pin from the tip of the greater trochanter into the proximal fe mur down just past the level of the lesser trochanter. The depth and position of the pin was then co nfirmed in AP and lateral projection. Satisfied with this, we then proceeded to ream the proximal fe mur using our pin as a guide with our cannulated 16 mm channel reamer. This was reamed to the level of the lesser trochanter. We then removed the guide pin and the channel reamer. This was then follo wed up by the selected short Intertan nail, a 10 mm diameter short Intertan nail with 125-degree angl e proximally. This was placed on our insertion guide. We then proceeded to manually insert the nail into the prepared proximal femur. This was advanced as needed using our slotted hammer. Fluoroscopi milana, once we were at the proper depth, we then proceeded to place the oval drill sleeve in the dist al end of our alignment insertion guide. This pin guide was advanced through a skin incision to the lateral femoral cortex. The pin guide was then inserted into the oval sleeve. This was then followe d with our threaded guide pin under power, as we advanced this through the proximal femur, femoral ne ck and femoral head. With minimal adjustments, we were then satisfied with the central location of o ur guide pin in both AP and lateral projections. Once we determined that the guide pin was at the pr oper depth within about 3 mm of subchondral bone in both AP and lateral projection, the direct measur ing guide was used and we determined a 100 mm subtrochanteric hip lag screw be utilized. We then rem mame the drill pin sleeve out of our oval sleeve and proceeded to ream the proximal femur, femoral ne ck and femoral head with our cannulated reamer. The reamer was then replaced and we proceeded to ins ert the selected subtrochanteric hip lag screw. This was advanced until we were within about 3 mm of the subchondral bone. The position of the hip lag screw was satisfactory on the AP and lateral proj ection. We did over rotate as we advanced the screw and at the end, we released the traction on the hip by releasing traction on the leg. We then derotated about 90 degrees to rotate the proximal frag ment of our fracture into a little better position. We then used the compression knob to allow us to impact the fracture further. This was confirmed with fluoroscopic views. Once we had impacted the fracture satisfactorily and felt the position of our fracture was satisfactory as well, we then carmen d the proximal set screw in our nail with the hinged screwdriver. Once this was tightened snugly, we then backed this off 90 degrees as well. Next, we directed our attention to putting the distal locking screw. After removing the pin sleeve g uide out from the proximal distal end of our alignment jig, we then inserted a concentric gold and si lver drill sleeves through the static hole at the distal end of our alignment jig. This was advanced to the lateral femoral cortex through a small skin incision. We then used a 4.0 measured drill bit into our guide and drilled bicortical holes in the mid shaft through the distal end of our nail. Flu oroscopic view confirmed the proper depth of our drill. We measured directly off of our drill, indic ating that a 35 mm length x 5 mm distal locking screw would be utilized. We removed the silver sleev e, as well as the drill. This was then followed by the selected distal locking screw, inserting this manually until we had bicortical contact. This was confirmed fluoroscopically to be in AP and later al projections. Satisfied with this, we then removed the insertion/alignment guide using a ball-tipp ed screwdriver. Final x-rays were then obtained, AP and lateral projection of the distal tip of the nail, as well as the proximal end of the nail, showing the fracture to be satisfactorily aligned and impacted. Hardware was satisfactorily placed. We then irrigated the wounds out thoroughly with salin e. We closed the proximal wound using several [id number] stitches of 0 Polysorb. Subcutaneous tissue was approximated with buried simple stitches of 2-0 Vicryl, proximal 2 incisions. Finally, sk in cass used to approximate all the skin edges. A total of 10 mL of 0.25% Marcaine with epinephri ne utilized to provide incisional skin anesthesia in all 3 wounds. We then dressed the wound with Xe roform gauze, 4 x 4's, and Tegaderm dressings. Patient then taken off the fracture table onto his be d in satisfactory condition. ESTIMATED BLOOD LOSS: 150 mL. REPLACEMENT: 1000 mL crystalloid. INTRAOPERATIVE COMPLICATIONS: None. PLAN: Patient will be weightbearing as tolerated on this extremity, beginning on postoperative day n ronald 1. TD: 08/16/2020 11:20
--- NOTE | 2020-08-16 16:24 | ANESTHESIA POST OP EVALUATION ---
Anesthesia Post Eval - Post Anesthesia Eval Vitals: Last Vital Signs Temp 36.3 C L 08/16/20 11:53 Pulse 86 08/16/20 13:21 Resp 16 08/16/20 11:53 BP 122/57 L 08/16/20 13:21 Pulse Ox 99 08/16/20 13:21 CV Function Including HR & BP: positive: Stable Pain Control: positive: Satisfactory Nausea & Vomiting: positive: Negative Mental Status: positive: Patient Participates Respiratory Status: Airway Patent Hydration Status: Satisfactory Anesthesia Complications: positive: None
[2020-08-16] MEDS: ASPIRIN 325 MG TABLET PO SCH (16:50)
[2020-08-16] MEDS: oxyCODONE 5 MG TABLET PO PRN ×2 (16:50→21:01)
[2020-08-16] MEDS: ATORVASTATIN 10 MG TABLET PO SCH (21:00)
[2020-08-17] MEDS: SODIUM CHLORIDE FLUSH 0.9% 10 ML SYRINGE IVP SCH ×6 (00:59→17:01)
[2020-08-17] MEDS: KETOROLAC 30 MG/ML VIAL IVP PRN ×3 (03:37→17:01)
[2020-08-17] MEDS: CALCIUM CARBONATE CHEW 500 MG TABLET PO SCH ×3 (05:44→20:42)
[2020-08-17] MEDS: oxyCODONE 5 MG TABLET PO PRN ×2 (06:04→10:54)
[2020-08-17 06:24] LABS: BASOPHILS % (AUTO) 0.2 %; EOSINOPHILS # (AUTO) 0.1 10^3/uL (0.0-0.7); EOSINOPHILS % (AUTO) 0.5 %; HGB - HEMOGLOBIN 9.9 g/dL (14.0-18.0); LYMPHOCYTES # (AUTO) 1.7 10^3/uL (1.5-3.5); LYMPHOCYTES % (AUTO) 15.3 %; MEAN CORPUSCULAR HEMOGLOBIN 30.4 pg (27.0-31.0); MEAN CORPUSCULAR HGB CONC 32.9 g/dL (32.0-36.0); MEAN CORPUSCULAR VOLUME 92.3 fL (80.0-94.0); MEAN PLATELET VOLUME 8.5 fL (7.4-11.4); MONOCYTES # (AUTO) 0.7 10^3/uL (0.0-1.0); MONOCYTES % (AUTO) 6.6 %; NEUTROPHILS # (AUTO) 8.4 10^3/uL (1.5-6.6); NEUTROPHILS % (AUTO) 76.8 %; PLT - PLATELET COUNT 131 10^3/uL (130-450); RED BLOOD COUNT 3.26 10^6/uL (4.70-6.10); RED CELL DISTRIBUTION WIDTH 12.8 % (12.0-15.0); WHITE BLOOD COUNT 10.9 x10^3/uL (4.8-10.8)
[2020-08-17 06:30] LABS: CALCIUM 8.4 mg/dL (8.5-10.3); CREATININE 0.8 mg/dL (0.6-1.2)
--- NOTE | 2020-08-17 07:17 | PROVIDER PROGRESS NOTE ---
Subjective - Prog Note Date Prog Note Date: 08/17/20 Prog Note Time: 07:18 - Subjective Pt reports feeling: Improved Subjective: Once he had a surgery, he cannot believe how much his pain in his leg improved. It is sore and achy but not that horrible agonizing pain he had when he tried to move his leg. He denies chest pain, palpitations, shortness of breath. No abdominal complaints. Wonders what for breakfast today. He says he is hungry. Current Medications - Current Medications Current Medications: Active Medications Acetaminophen (Tylenol) 650 - 975 mg PO Q4HR PRN PRN Reason: PAIN Amantadine HCl (Symmetrel) 100 mg PO BID [facility] Last Admin: 08/16/20 21:00 Dose: 100 mg Documented by: Ascorbic Acid (Vitamin C) 1,000 mg PO DAILY [facility] Aspirin (Stephenie) 325 mg PO BIDWM [facility] Last Admin: 08/16/20 16:50 Dose: 325 mg Documented by: Atorvastatin Calcium (Lipitor) 10 mg PO QPM [facility] Last Admin: 08/16/20 21:00 Dose: 10 mg Documented by: Calcium Carbonate/Glycine (Tums) 500 mg PO TID [facility] Last Admin: 08/17/20 05:44 Dose: Not Given Documented by: Cholecalciferol (Vitamin D3) 25 mcg PO DAILY [facility] Docusate Sodium (Colace 250mg Capsule) 250 - 500 mg PO DAILY [facility] Enoxaparin Sodium (Lovenox) 40 mg SUBQ DAILY [facility] Sodium Chloride (Normal Saline 0.9%) 1,000 mls @ 100 mls/hr IV .Q10H [facility] Last Admin: 08/16/20 22:18 Dose: 100 mls/hr Documented by: Ketorolac Tromethamine (Toradol Inj (30mg)) 30 mg IVP Q6HR PRN PRN Reason: PAIN Stop: 08/20/20 20:33 Last Admin: 08/17/20 03:37 Dose: 30 mg Documented by: Magnesium Oxide (Mag Ox) 400 mg PO DAILYWM [facility] Morphine Sulfate (Morphine (Carpuject)) 2 mg IVP Q2HR PRN PRN Reason: Pain 8 to 10 Last Admin: 08/16/20 06:42 Dose: 2 mg Documented by: Multivitamins (Theragran) 1 tab PO DAILYWM [facility] Non-Formulary Medication (Carbidopa/Levodopa/Entacapone [Carbidopa-Levodopa 200 Mg-Enta]) 1 each PO QID [facility] Last Admin: 08/16/20 21:01 Dose: 1 each Documented by: Ilmsu-0-Wacl Ethyl Esters (Lovaza) 1 gm PO DAILY [facility] Ondansetron HCl (Zofran Odt) 4 mg TL Q6HR PRN PRN Reason: Nausea / Vomiting Ondansetron HCl (Zofran Inj) 4 mg IVP Q6HR PRN PRN Reason: Nausea / Vomiting Ondansetron HCl (Zofran Inj) 4 mg IVP Q6HR PRN PRN Reason: Nausea / Vomiting Oxycodone HCl (Roxicodone) 5 mg PO Q4HR PRN PRN Reason: PAIN Last Admin: 08/17/20 06:04 Dose: 5 mg Documented by: Polyethylene Glycol (Miralax) 17 gm PO DAILY [facility] Prochlorperazine Edisylate (Compazine Inj) 10 mg IVP Q6HR PRN PRN Reason: Nausea / Vomiting Senna (Senokot) 8.6 - 17.2 mg PO DAILY [facility] Sertraline HCl (Zoloft) 25 mg PO DAILY [facility] Sodium Chloride (Normal Saline Flush 0.9%) 10 ml IVP PRN PRN PRN Reason: NEEDED PER PROVIDER ORDERS Last Admin: 08/16/20 03:54 Dose: 10 ml Documented by: Sodium Chloride (Normal Saline Flush 0.9%) 10 ml IVP 0100,0900,1700 [facility] Last Admin: 08/17/20 00:59 Dose: Not Given Documented by: Sodium Chloride (Normal Saline Flush 0.9%) 10 ml IVP 0100,0900,1700 [facility] Last Admin: 08/17/20 00:59 Dose: Not Given Documented by: Sodium Chloride (Normal Saline Flush 0.9%) 10 ml IVP PRN PRN PRN Reason: NEEDED PER PROVIDER ORDERS Amantadine HCl [Amantadine] 100 mg PO BID 08/15/20 Ascorbic Acid [Vitamin C] 1,000 mg PO DAILY 08/16/20 Carbidopa/Levodopa/Entacapone [Lxnjiwfec-Pzmneysi-Tkbr 200 mg] 1 each PO QID 08/16/20 Cholecalciferol (Vitamin D3) [Vitamin D3] 1 cap PO DAILY 08/16/20 Ibuprofen 200 - 400 mg PO DAILY PRN 08/16/20 Magnesium Oxide [Magnesium] 500 mg PO DAILY 08/16/20 Naltrexone [Naltrexone Base Monohydrate] 4.5 mg PO QPM 08/16/20 [place]-3/Dha/Epa/Fish Oil [Fish Oil 1,000 mg Softgel] 1 cap PO DAILY 08/16/20 Sertraline [Zoloft] 25 mg PO DAILY 08/16/20 Simvastatin 20 mg PO QPM 08/16/20 Vit B Comp No.3/Folic/C/Biotin [Nephro-Moises Rx Tablet] 1 tab PO DAILY 08/16/20 Objective - Vital Signs/Intake & Output Reviewed Vital Signs: Yes Vital Signs: Vital Signs x48h Temp Pulse Resp BP Pulse Ox 08/17/20 00:10 36.5 C 74 16 110/47 L 99 Intake & Output: Intake & Output 08/14/20 08/15/20 08/16/20 08/17/20 23:59 23:59 23:59 23:59 Intake Total 200 2210 Output Total 100 750 300 Balance 100 1460 -300 - Objective General Appearance: positive: No acute distress, Alert, Other (Thin, cachectic white male who looks older than stated age. Wearing glasses. Low hoarse voice.) Eyes Bilateral: positive: PERRL, EOMI ENT: positive: No signs of dehydration (Dry tongue and where his lips were sticking to his teeth have both resolved) Neck: positive: No JVD. negative: Stiff neck Respiratory: positive: No respiratory distress. negative: Wheezes, Rales, Rhonchi Cardiovascular: positive: Regular rate & rhythm. negative: Gallop/S4, Friction rub Abdomen: positive: Non-tender, No organomegaly, Nml bowel sounds, No distention Skin: positive: Warm, Dry Extremities: positive: No pedal edema, Other (Left hip bandage in place. Skin looks warm and dry underneath it.) Neurologic/Psychiatric: positive: Oriented x3. negative: CN's nml (2-12) (Voice hoarse. Chronically so.), Motor nml (The resting right hand and arm tremor is much improved from admission. Present with intention now. Both hands have tremors with intention. Bilateral cogwheel rigidity of the upper extremities. Masked facies.) - Lab Results Fish Bones: 08/17/20 06:10 08/17/20 06:10 Other Labs: Lab Results x24hrs 08/17/20 08/17/20 Range/Units 06:10 06:10 WBC 10.9 H (4.8-10.8) x10^3/uL RBC 3.26 L (4.70-6.10) 10^6/uL Hgb 9.9 L (14.0-18.0) g/dL Hct 30.1 L (42.0-52.0) % MCV 92.3 (80.0-94.0) fL MCH 30.4 (27.0-31.0) pg MCHC 32.9 (32.0-36.0) g/dL RDW 12.8 (12.0-15.0) % Plt Count 131 (130-450) 10^3/uL MPV 8.5 (7.4-11.4) fL Neut # (Auto) 8.4 H (1.5-6.6) 10^3/uL Lymph # (Auto) 1.7 (1.5-3.5) 10^3/uL [place] # (Auto) 0.7 (0.0-1.0) 10^3/uL Eos # (Auto) 0.1 (0.0-0.7) 10^3/uL Baso # (Auto) 0.0 (0.0-0.1) 10^3/uL Absolute Nucleated RBC 0.00 x10^3/uL Nucleated RBC % 0.0 /100WBC Sodium 138 (135-145) mmol/L Potassium 3.9 (3.5-5.0) mmol/L Chloride 107 (101-111) mmol/L Carbon Dioxide 24 (21-32) mmol/L Anion Gap 7.0 (6-13) BUN 14 (6-20) mg/dL Creatinine 0.8 (0.6-1.2) mg/dL Estimated GFR (MDRD) 95 (>89) Glucose 122 H (70-100) mg/dL Calcium 8.4 L (8.5-10.3) mg/dL Assessment/Plan - Problem List (1) Acute blood loss as cause of postoperative anemia Impression: Hemoglobin on admission was 15.7>> 13.5>> 9.9 this morning. Plan: Continue to monitor and transfuse if drops below 8 g (2) Hip fracture, left Impression: Due to mechanical fall. He suddenly turned, was dizzy, lost his balance and fell. He was taken to the operating room on August 16. Today is postop day #1. He says that he feels substantial reduction in pain. His roommate but not his power of sports attorney is Stephanie. Very involved in his care when he read social care notes. Plan is for him to go to a alf facility approximately postop day #3. He is anxious to work with physical therapy. Qualifiers: Encounter type: initial encounter Fracture type: closed Qualified Code(s): S72.002A - Fracture of unspecified part of neck of left femur, initial encounter for closed fracture (3) Parkinson disease Conclusion/Plan: Medications resumed. Tremor is stable. The night he was admitted it was quite severe. But once his medications resumed it has improved. When we discussed resuscitative status, he says he is never really thought about it. While he is unhappy, depressed, and occasionally contemplates taking his own life, he has never thought about resuscitation. At this time he wishes to be full code. On Zoloft. That was continued from home. Plan: Start PT today. His Parkinson's disease may delay some recovery. Social work to discuss w pt and fam where to do rehab after POD#3. Right now he is hoping that he can stay on the [facility]. (4) Malnutrition Conclusion/Plan: Unknown weight status in the past. Will call his PCP office and see if there is any records. He describes a slow weight loss ever since his accident in [place].With his low caloric intake, he may be low on calcium vitamin D. Possib ility of osteoporosis. Plan: Nutrition consult Calcium 500 mg 3 times a day Vitamin D 800 international units daily Qualifiers: Malnutrition type: protein-calorie malnutrition (5) Hypertension Conclusion/Plan: He does not have a history of high blood pressure. On admission he was in a lot of pain and very anxious. As such his systolic blood pressure was all the way up in the 150s to 160s last night, at midnight, he was 140 systolic. This morning's blood pressure has not been recorded yet. Plan: Continue to monitor and see if he needs antihypertensives in the outpatient setting Qualifiers: Hypertension type: essential hypertension Qualified Code(s): I10 - Essent ial (primary) hypertension (6) Urine retention Conclusion/Plan: With his dry mouth, urinary retention, probable effects of his Parkinson's medications. He was offered a Ewing catheter on the night of admission but declined. Ended up getting it right before surgery. Plan: Start clamping the Ewing throughout the day. Old literature suggest stimulation of bladder will help and the Ewing was pulled. Consider pulling the Ewing tomorrow after bladder clamping today. Qualifiers: Qualified Code(s): S72.002A - Fracture of unspecified part of neck of left femur, initial encounter for closed fracture Qualifiers: Qualified Code(s): S72.002A - Fracture of unspecified part of neck of left femur, initial encounter for closed fracture
[2020-08-17] MEDS ORDERED: MULTIVITAMIN TABLET PO SCH (08:00)
[2020-08-17] MEDS: ASPIRIN 325 MG TABLET PO SCH ×2 (08:10→17:00)
[2020-08-17] MEDS: MAGNESIUM OXIDE 400 MG TABLET PO SCH (08:10)
[2020-08-17] MEDS: ASCORBIC ACID CHEW 500 MG TABLET PO SCH (08:17)
[2020-08-17] MEDS: CARBIDOPA PO SCH ×4 (08:17→20:41)
[2020-08-17] MEDS: ENTACAPONE PO SCH ×4 (08:17→20:41)
[2020-08-17] MEDS: LEVODOPA PO SCH ×4 (08:17→20:41)
[2020-08-17] MEDS: [UNRECOGNIZED DRUG - OTHER] PO SCH ×4 (08:17→20:41)
[2020-08-17] MEDS: OMEGA-3 ACID ETHYL ESTERS 1 GM CAPSULE PO SCH (08:18)
[2020-08-17] MEDS: SODIUM CHLORIDE 0.9% 1,000 ML IV SCH ×2 (08:31→18:05)
[2020-08-17] MEDS: CHOLECALCIFEROL 25 MCG TABLET PO SCH (08:32)
[2020-08-17] MEDS: AMANTADINE 100 MG CAPSULE PO SCH ×2 (08:33→20:40)
[2020-08-17] MEDS: DOCUSATE SODIUM 250 MG CAPSULE PO SCH (08:35)
[2020-08-17] MEDS: SENNA 8.6 MG TABLET PO SCH (08:36)
[2020-08-17] MEDS: SERTRALINE 25 MG TABLET PO SCH (08:37)
[2020-08-17] MEDS: polyethylene glycoL 3350 17 GM PACKET PO SCH (08:43)
[2020-08-17] MEDS ORDERED: CHOLECALCIFEROL 400 UNIT TABLET PO SCH (09:00)
[2020-08-17] MEDS ORDERED: ENOXAPARIN 40 MG/0.4 ML SYRINGE SUBQ SCH (09:00)
--- NOTE | 2020-08-17 10:23 | PROVIDER PROGRESS NOTE ---
Subjective - Prog Note Date Prog Note Date: 08/17/20 Prog Note Time: 10:21 - Subjective Pt reports feeling: Improved (Mild post op pain) Objective - Vital Signs/Intake & Output Vital Signs: Vital Signs x48h Temp Pulse Resp BP Pulse Ox 08/17/20 08:00 37.0 C 73 18 129/57 L 98 Intake & Output: Intake & Output 08/14/20 08/15/20 08/16/20 08/17/20 23:59 23:59 23:59 23:59 Intake Total 200 2210 1480 Output Total 100 750 500 Balance 100 1460 980 - Lab Results Fish Bones: 08/17/20 06:10 08/17/20 06:10 Other Labs: Lab Results x24hrs 08/17/20 08/17/20 Range/Units 06:10 06:10 WBC 10.9 H (4.8-10.8) x10^3/uL RBC 3.26 L (4.70-6.10) 10^6/uL Hgb 9.9 L (14.0-18.0) g/dL Hct 30.1 L (42.0-52.0) % MCV 92.3 (80.0-94.0) fL MCH 30.4 (27.0-31.0) pg MCHC 32.9 (32.0-36.0) g/dL RDW 12.8 (12.0-15.0) % Plt Count 131 (130-450) 10^3/uL MPV 8.5 (7.4-11.4) fL Neut # (Auto) 8.4 H (1.5-6.6) 10^3/uL Lymph # (Auto) 1.7 (1.5-3.5) 10^3/uL [place] # (Auto) 0.7 (0.0-1.0) 10^3/uL Eos # (Auto) 0.1 (0.0-0.7) 10^3/uL Baso # (Auto) 0.0 (0.0-0.1) 10^3/uL Absolute Nucleated RBC 0.00 x10^3/uL Nucleated RBC % 0.0 /100WBC Sodium 138 (135-145) mmol/L Potassium 3.9 (3.5-5.0) mmol/L Chloride 107 (101-111) mmol/L Carbon Dioxide 24 (21-32) mmol/L Anion Gap 7.0 (6-13) BUN 14 (6-20) mg/dL Creatinine 0.8 (0.6-1.2) mg/dL Estimated GFR (MDRD) 95 (>89) Glucose 122 H (70-100) mg/dL Calcium 8.4 L (8.5-10.3) mg/dL - Other Results/Comments Other Results/Comments: EXAM: Minimal pain with hip rotation. N/V ok distally Assessment/Plan - Problem List (1) Hip fracture, left Impression: Satis post op PLAN: Mobilize as tolerated. Qualifiers: Encounter type: subsequent encounter Fracture type: closed Qualified Code(s): S72.002A - Fracture of unspecified part of neck of left femur, initial encounter for closed fracture
[2020-08-17] MEDS: SODIUM CHLORIDE FLUSH 0.9% 10 ML SYRINGE IVP PRN (10:53)
[2020-08-17] MEDS: ATORVASTATIN 10 MG TABLET PO SCH (20:40)
[2020-08-18] MEDS: KETOROLAC 30 MG/ML VIAL IVP PRN (00:34)
[2020-08-18] MEDS: SODIUM CHLORIDE FLUSH 0.9% 10 ML SYRINGE IVP SCH ×5 (00:37→17:15)
[2020-08-18] MEDS: SODIUM CHLORIDE 0.9% 1,000 ML IV SCH (03:42)
[2020-08-18 05:23] LABS: BASOPHILS # (AUTO) 0.1 10^3/uL (0.0-0.1); BASOPHILS % (AUTO) 0.5 %; EOSINOPHILS # (AUTO) 0.2 10^3/uL (0.0-0.7); EOSINOPHILS % (AUTO) 1.6 %; HGB - HEMOGLOBIN 9.4 g/dL (14.0-18.0); LYMPHOCYTES # (AUTO) 1.7 10^3/uL (1.5-3.5); MEAN CORPUSCULAR HGB CONC 33.8 g/dL (32.0-36.0); MEAN CORPUSCULAR VOLUME 91.7 fL (80.0-94.0); MEAN PLATELET VOLUME 9.1 fL (7.4-11.4); MONOCYTES # (AUTO) 0.7 10^3/uL (0.0-1.0); MONOCYTES % (AUTO) 6.7 %; NEUTROPHILS # (AUTO) 8.4 10^3/uL (1.5-6.6); NEUTROPHILS % (AUTO) 75.6 %; PLT - PLATELET COUNT 121 10^3/uL (130-450); RED BLOOD COUNT 3.03 10^6/uL (4.70-6.10); RED CELL DISTRIBUTION WIDTH 12.7 % (12.0-15.0); WHITE BLOOD COUNT 11.1 x10^3/uL (4.8-10.8)
[2020-08-18 05:34] LABS: CALCIUM 8.5 mg/dL (8.5-10.3); CREATININE 0.7 mg/dL (0.6-1.2)
[2020-08-18] MEDS: CALCIUM CARBONATE CHEW 500 MG TABLET PO SCH ×3 (05:47→21:19)
[2020-08-18] MEDS ORDERED: GLYCOPYRROLATE 1 MG/5 ML VIAL IVP ONE (07:24)
[2020-08-18] MEDS ORDERED: DEXAMETHASONE 4 MG/ML VIAL IVP ONE (07:24)
[2020-08-18] MEDS ORDERED: ePHEDrine 50 MG/ML VIAL IVP ONE (07:24)
[2020-08-18] MEDS ORDERED: KETOROLAC 30 MG/ML VIAL IVP ONE (07:24)
[2020-08-18] MEDS ORDERED: ROCURONIUM 50 MG/5 ML VIAL IVP ONE (07:24)
[2020-08-18] MEDS ORDERED: ACETAMINOPHEN 1,000 MG/100 ML 100 ML IV ONE (07:24)
[2020-08-18] MEDS ORDERED: PROPOFOL 200 MG/20 ML VIAL IVP ONE (07:24)
[2020-08-18] MEDS ORDERED: fentaNYL 100 MCG/2 ML VIAL IVP ONE (07:24)
[2020-08-18] MEDS ORDERED: NEOSTIGMINE 1 MG/1 ML 10 ML MDV IVP ONE (07:24)
[2020-08-18] MEDS ORDERED: LIDOCAINE-MPF 2% 5 ML VIAL IM ONE (07:24)
[2020-08-18] MEDS ORDERED: MIDAZOLAM 2 MG/2 ML VIAL IVP ONE (07:24)
[2020-08-18] MEDS ORDERED: ONDANSETRON 4 MG/2 ML VIAL IVP ONE (07:24)
[2020-08-18] MEDS: ENTACAPONE PO SCH ×4 (08:06→21:19)
[2020-08-18] MEDS: CARBIDOPA PO SCH ×4 (08:06→21:19)
[2020-08-18] MEDS: LEVODOPA PO SCH ×4 (08:06→21:19)
[2020-08-18] MEDS: [UNRECOGNIZED DRUG - OTHER] PO SCH ×4 (08:06→21:19)
[2020-08-18 08:20] LABS: ABSOLUTE RETICS # AUTO 0.071 10^6/uL (0.020-0.110); RED BLOOD COUNT 3.05 10^6/uL (4.70-6.10)
[2020-08-18] MEDS: ASPIRIN 325 MG TABLET PO SCH ×2 (08:20→17:15)
[2020-08-18] MEDS: MAGNESIUM OXIDE 400 MG TABLET PO SCH (08:21)
[2020-08-18] MEDS: MULTIVITAMIN W/MINERALS TABLET PO SCH (08:21)
[2020-08-18] MEDS: ASCORBIC ACID CHEW 500 MG TABLET PO SCH (08:23)
[2020-08-18] MEDS: CHOLECALCIFEROL 25 MCG TABLET PO SCH (08:23)
[2020-08-18] MEDS: AMANTADINE 100 MG CAPSULE PO SCH ×2 (08:23→20:50)
[2020-08-18] MEDS: DOCUSATE SODIUM 250 MG CAPSULE PO SCH (08:25)
[2020-08-18] MEDS: OMEGA-3 ACID ETHYL ESTERS 1 GM CAPSULE PO SCH (08:25)
[2020-08-18] MEDS: SENNA 8.6 MG TABLET PO SCH (08:26)
[2020-08-18] MEDS: polyethylene glycoL 3350 17 GM PACKET PO SCH (08:27)
[2020-08-18] MEDS: SERTRALINE 25 MG TABLET PO SCH (08:39)
[2020-08-18 08:40] LABS: % IRON SATURATION 20 % (20-50); IRON 51 ug/dL (45-182); TOTAL IRON BINDING CAPACITY 260 ug/dL (250-450); TRANSFERRIN 186 mg/dL (180-329)
[2020-08-18 08:50] LABS: FERRITIN 120.3 ng/mL (23.9-336.2)
[2020-08-18] MEDS ORDERED: LEVODOPA PO SCH (11:29)
[2020-08-18] MEDS ORDERED: ENTACAPONE PO SCH (11:29)
[2020-08-18] MEDS ORDERED: CARBIDOPA PO SCH (11:29)
[2020-08-18] MEDS ORDERED: [UNRECOGNIZED DRUG - OTHER] PO SCH (11:29)
[2020-08-18 12:13] LABS: BILIRUBIN,URINE NEGATIVE (NEGATIVE); GLUCOSE, URINE (UA) NEGATIVE (NEGATIVE); KETONES,URINE (UA) TRACE mg/dL (NEGATIVE); LEUKOCYTE ESTERASE, URINE NEGATIVE (NEGATIVE); NITRITE,URINE NEGATIVE (NEGATIVE); OCCULT BLOOD,URINE NEGATIVE (NEGATIVE); PROTEIN,URINE NEGATIVE (NEGATIVE); UROBILINOGEN,URINE 0.2 (NORMAL) E.U./dL (NORMAL)
[2020-08-18 12:22] LABS: BACTERIA,URINE None Seen /HPF (None Seen); CLARITY,URINE CLEAR (CLEAR); RBC,URINE None Seen /HPF (0-5); SQUAMOUS EPITHELIAL CELL,UR NONE SEEN (<= Few)
--- NOTE | 2020-08-18 12:50 | PROVIDER PROGRESS NOTE ---
Subjective - Prog Note Date Prog Note Date: 08/18/20 Prog Note Time: 12:47 - Subjective Pt reports feeling: Improved (No complaints) Objective - Vital Signs/Intake & Output Vital Signs: Vital Signs x48h Temp Pulse Resp BP Pulse Ox 08/18/20 08:00 36.5 C 93 20 170/79 H 99 Intake & Output: Intake & Output 08/15/20 08/16/20 08/17/20 08/18/20 23:59 23:59 23:59 23:59 Intake Total 200 2210 3276.667 1640.000 Output Total 318 011 2404 1950 Balance 100 1460 641.667 -310.000 - Lab Results Fish Bones: 08/18/20 05:10 08/18/20 05:10 Other Labs: Lab Results x24hrs 08/18/20 08/18/20 08/18/20 Range/Units 11:30 05:10 05:10 WBC (4.8-10.8) x10^3/uL RBC (4.70-6.10) 10^6/uL Hgb (14.0-18.0) g/dL Hct (42.0-52.0) % MCV (80.0-94.0) fL MCH (27.0-31.0) pg MCHC (32.0-36.0) g/dL RDW (12.0-15.0) % Plt Count (130-450) 10^3/uL MPV (7.4-11.4) fL Reticulocyte % (Auto) (0.5-2.3) % Neut # (Auto) (1.5-6.6) 10^3/uL Lymph # (Auto) (1.5-3.5) 10^3/uL [place] # (Auto) (0.0-1.0) 10^3/uL Eos # (Auto) (0.0-0.7) 10^3/uL Baso # (Auto) (0.0-0.1) 10^3/uL Absolute Nucleated RBC x10^3/uL Nucleated RBC % /100WBC Absolute Retic (0.020-0.110) 10^6/uL Sodium (135-145) mmol/L Potassium (3.5-5.0) mmol/L Chloride (101-111) mmol/L Carbon Dioxide (21-32) mmol/L Anion Gap (6-13) BUN (6-20) mg/dL Creatinine (0.6-1.2) mg/dL Estimated GFR (MDRD) (>89) Glucose (70-100) mg/dL Calcium (8.5-10.3) mg/dL Iron (45-182) ug/dL TIBC (250-450) ug/dL % Saturation (20-50) % Transferrin (180-329) mg/dL Ferritin 120.3 (23.9-336.2) ng/mL Lactate Dehydrogenase 142 (91-225) IU/L Vitamin B12 424 (180-914) pg/mL Urine Color YELLOW Urine Clarity CLEAR (CLEAR) Urine pH 7.0 (5.0-7.5) PH Ur Specific [place] 1.020 (1.002-1.030) Urine Protein NEGATIVE (NEGATIVE) mg/dL Urine Glucose (UA) NEGATIVE (NEGATIVE) mg/dL Urine Ketones TRACE (NEGATIVE) mg/dL Urine Occult Blood NEGATIVE (NEGATIVE) Urine Nitrite NEGATIVE (NEGATIVE) Urine Bilirubin NEGATIVE (NEGATIVE) Urine Urobilinogen 0.2 (NORMAL) (NORMAL) E.U./dL Ur Leukocyte Esterase NEGATIVE (NEGATIVE) Urine RBC None Seen (0-5) /HPF Urine WBC 0-3 (0-3) /HPF Ur Squamous Epith Cells NONE SEEN (<= Few) Urine Bacteria None Seen (None Seen) /HPF Urine Culture Comments NOT INDICATED 08/18/20 08/18/20 08/18/20 Range/Units 05:10 05:10 05:10 WBC (4.8-10.8) x10^3/uL RBC 3.05 L (4.70-6.10) 10^6/uL Hgb (14.0-18.0) g/dL Hct (42.0-52.0) % MCV (80.0-94.0) fL MCH (27.0-31.0) pg MCHC (32.0-36.0) g/dL RDW (12.0-15.0) % Plt Count (130-450) 10^3/uL MPV (7.4-11.4) fL Reticulocyte % (Auto) 2.33 H (0.5-2.3) % Neut # (Auto) (1.5-6.6) 10^3/uL Lymph # (Auto) (1.5-3.5) 10^3/uL [place] # (Auto) (0.0-1.0) 10^3/uL Eos # (Auto) (0.0-0.7) 10^3/uL Baso # (Auto) (0.0-0.1) 10^3/uL Absolute Nucleated RBC x10^3/uL Nucleated RBC % /100WBC Absolute Retic 0.071 (0.020-0.110) 10^6/uL Sodium 138 (135-145) mmol/L Potassium 4.5 (3.5-5.0) mmol/L Chloride 106 (101-111) mmol/L Carbon Dioxide 24 (21-32) mmol/L Anion Gap 8.0 (6-13) BUN 16 (6-20) mg/dL Creatinine 0.7 (0.6-1.2) mg/dL Estimated GFR (MDRD) 111 (>89) Glucose 104 H (70-100) mg/dL Calcium 8.5 (8.5-10.3) mg/dL Iron 51 (45-182) ug/dL TIBC 260 (250-450) ug/dL % Saturation 20 (20-50) % Transferrin 186 (180-329) mg/dL Ferritin (23.9-336.2) ng/mL Lactate Dehydrogenase (91-225) IU/L Vitamin B12 (180-914) pg/mL Urine Color Urine Clarity (CLEAR) Urine pH (5.0-7.5) PH Ur Specific [place] (1.002-1.030) Urine Protein (NEGATIVE) mg/dL Urine Glucose (UA) (NEGATIVE) mg/dL Urine Ketones (NEGATIVE) mg/dL Urine Occult Blood (NEGATIVE) Urine Nitrite (NEGATIVE) Urine Bilirubin (NEGATIVE) Urine Urobilinogen (NORMAL) E.U./dL Ur Leukocyte Esterase (NEGATIVE) Urine RBC (0-5) /HPF Urine WBC (0-3) /HPF Ur Squamous Epith Cells (<= Few) Urine Bacteria (None Seen) /HPF Urine Culture Comments 08/18/20 Range/Units 05:10 WBC 11.1 H (4.8-10.8) x10^3/uL RBC 3.03 L (4.70-6.10) 10^6/uL Hgb 9.4 L (14.0-18.0) g/dL Hct 27.8 L (42.0-52.0) % MCV 91.7 (80.0-94.0) fL MCH 31.0 (27.0-31.0) pg MCHC 33.8 (32.0-36.0) g/dL RDW 12.7 (12.0-15.0) % Plt Count 121 L (130-450) 10^3/uL MPV 9.1 (7.4-11.4) fL Reticulocyte % (Auto) (0.5-2.3) % Neut # (Auto) 8.4 H (1.5-6.6) 10^3/uL Lymph # (Auto) 1.7 (1.5-3.5) 10^3/uL [place] # (Auto) 0.7 (0.0-1.0) 10^3/uL Eos # (Auto) 0.2 (0.0-0.7) 10^3/uL Baso # (Auto) 0.1 (0.0-0.1) 10^3/uL Absolute Nucleated RBC 0.00 x10^3/uL Nucleated RBC % 0.0 /100WBC Absolute Retic (0.020-0.110) 10^6/uL Sodium (135-145) mmol/L Potassium (3.5-5.0) mmol/L Chloride (101-111) mmol/L Carbon Dioxide (21-32) mmol/L Anion Gap (6-13) BUN (6-20) mg/dL Creatinine (0.6-1.2) mg/dL Estimated GFR (MDRD) (>89) Glucose (70-100) mg/dL Calcium (8.5-10.3) mg/dL Iron (45-182) ug/dL TIBC (250-450) ug/dL % Saturation (20-50) % Transferrin (180-329) mg/dL Ferritin (23.9-336.2) ng/mL Lactate Dehydrogenase (91-225) IU/L Vitamin B12 (180-914) pg/mL Urine Color Urine Clarity (CLEAR) Urine pH (5.0-7.5) PH Ur Specific [place] (1.002-1.030) Urine Protein (NEGATIVE) mg/dL Urine Glucose (UA) (NEGATIVE) mg/dL Urine Ketones (NEGATIVE) mg/dL Urine Occult Blood (NEGATIVE) Urine Nitrite (NEGATIVE) Urine Bilirubin (NEGATIVE) Urine Urobilinogen (NORMAL) E.U./dL Ur Leukocyte Esterase (NEGATIVE) Urine RBC (0-5) /HPF Urine WBC (0-3) /HPF Ur Squamous Epith Cells (<= Few) Urine Bacteria (None Seen) /HPF Urine Culture Comments - Other Results/Comments Other Results/Comments: EXAM: Dressing intact. No pain with hip rotation. Moves toes well. Sensation intact. Good cap filling Up in PT Assessment/Plan - Problem List (1) Hip fracture, left Impression: Satis post op PLAN: Mobilize as tolerated. PT at [facility]. Aspirin for DVT prophyllaxis. RTC in 2 weeks for cass out and XR. Qualifiers: Encounter type: subsequent encounter Fracture type: closed Qualified Code(s): S72.002A - Fracture of unspecified part of neck of left femur, initial encounter for closed fracture
--- NOTE | 2020-08-18 13:48 | XRAY Report ---
PROCEDURE: OR C-Arm Procedure INDICATIONS: HIP NAIL TECHNIQUE: A total of 4 intraoperative views are acquired, documenting successful stabilization of a previously identified left hip fracture, with the medullary stephen fixed by a transverse screw at the pr oximal femoral diaphysis and the dynamic hip screw extending through the stephen and into the left femora l neck and head area. COMPARISON: Prior plain film imaging showing acute trauma 08/15/2020 FINDINGS: Improved anatomic alignment established. Note is again made of a mildly displaced lesser trochanteric fracture fragment. The fracture across the low base of the left femoral neck is in apposition to the intertrochanteric margin of the proximal left femur. IMPRESSION: Improved anatomic alignment after fracture fixation by dynamic hip screw through a medullary stephen, for healing. Reviewed by: Dom Villanueva MD on 08/18/2020 1:46 PM PDT Approved by: Dom Villanueva MD on 08/18/2020 1:46 PM PDT Station ID: [id number]
--- NOTE | 2020-08-18 14:14 | PROVIDER PROGRESS NOTE ---
Assessment/Plan - Problem List (1) Acute blood loss as cause of postoperative anemia Assessment/Plan: Hemoglobin is 9.4 today. Patient reported he feels good, he worked with physical therapist and occupational therapist on today, Asymptomatic for anemia. Iron study was unremarkable. Continue H&H to monitor hemoglobin. Continue to monitor and transfuse if drops below 8 g (2) Hip fracture, left Today is day 2 s/p of hip repair, Patient walked with physical therapist and occupational therapist on today, will continue PT/OT, continue pain control, continue consult with social work, hopefully plan discharge on tomorrow. Continue aspirin twice daily for DVT prophylaxis, continue consult and follow-up with orthopedic surgeon. (3) Parkinson disease Conclusion/Plan: stable, home Medications resumed. Tremor is stable and controlled. (4) Malnutrition consult with crime scene specialist. Calcium 500 mg 3 times a day Vitamin D 800 international units daily (5) Hypertension Conclusion/Plan: Today patient has slightly elevated blood pressure at 170, Add amlodipine 5 mg daily for patient (6) Urine retention Resolved. Patient has no Ewing, he can urinate by his self. Likely from anesthesia effective of surgery - Current Meds Current Meds: Current Medications Generic Name Dose Route Start Last Admin Trade Name Freq PRN Reason Stop Dose Admin Amantadine HCl 100 mg 08/16/20 09:00 08/18/20 08:23 Symmetrel PO 100 mg BID BARRY Administration Ascorbic Acid 1,000 mg 08/17/20 09:00 08/18/20 08:23 Vitamin C PO 1,000 mg DAILY BARRY Administration Aspirin 325 mg 08/16/20 17:00 08/18/20 08:20 Stephenie PO 325 mg BIDWM BARRY Administration Atorvastatin Calcium 10 mg 08/16/20 21:00 08/17/20 20:40 Lipitor PO 10 mg QPM BARRY Administration Calcium Carbonate/Glycine 500 mg 08/15/20 22:00 08/18/20 05:47 Tums PO 500 mg TID BARRY Administration Cholecalciferol 25 mcg 08/17/20 09:00 08/18/20 08:23 Vitamin D3 PO 25 mcg DAILY BARRY Administration Docusate Sodium 250 - 500 mg 08/17/20 09:00 08/18/20 08:25 Colace 250mg Capsule PO 250 mg DAILY BARRY Administration Ketorolac Tromethamine 30 mg 08/15/20 20:34 08/18/20 00:34 Toradol Inj (30mg) IVP 08/20/20 20:33 30 mg Q6HR PRN Administration PAIN Magnesium Oxide 400 mg 08/17/20 08:00 08/18/20 08:21 Mag Ox PO 400 mg DAILYWM BARRY Administration Morphine Sulfate 2 mg 08/15/20 19:35 08/16/20 06:42 Morphine (Carpuject) IVP 2 mg Q2HR PRN Administration Pain 8 to 10 Multivitamins/Minerals 1 tab 08/18/20 08:00 08/18/20 08:21 Theragran M PO 1 tab DAILYWM BARRY Administration Nonqy-0-Vmjv Ethyl Esters 1 gm 08/17/20 09:00 08/18/20 08:25 Lovaza PO 1 gm DAILY BARRY Administration Oxycodone HCl 5 mg 08/16/20 10:51 08/17/20 10:54 Roxicodone PO 5 mg Q4HR PRN Administration PAIN Polyethylene Glycol 17 gm 08/17/20 09:00 08/18/20 08:27 Miralax PO Not Given DAILY BARRY Senna 8.6 - 17.2 mg 08/17/20 09:00 08/18/20 08:26 Senokot PO 8.6 mg DAILY BARRY Administration Sertraline HCl 25 mg 08/17/20 09:00 08/18/20 08:39 Zoloft PO 25 mg DAILY BARRY Administration Sodium Chloride 10 ml 08/15/20 19:35 08/17/20 10:53 Normal Saline Flush 0.9% IVP 10 ml PRN PRN Administration NEEDED PER PROVIDER ORDERS Sodium Chloride 10 ml 08/16/20 01:00 08/18/20 08:29 Normal Saline Flush 0.9% IVP Not Given 0100,0900,1700 BARRY - Lab Result Fish Bone Diagrams: 08/18/20 05:10 08/18/20 05:10 - Additional Planning My Orders: My Active Orders 08/18/20 07:58 Incentive Spirometry - RT [RC] TID 08/18/20 17:00 Carbidopa/Levodopa 10/100 [Sinemet 10 mg/100 mg] 1 tab PO QID 08/19/20 05:00 BMP - BASIC METABOLIC PANEL [CHEM] DAILYLAB CBC - COMP BLD CT W/AUTO DIFF [HEME] DAILYLAB MAGNESIUM [CHEM] DAILYLAB PHOSPHORUS [CHEM] DAILYLAB 08/20/20 05:00 BMP - BASIC METABOLIC PANEL [CHEM] DAILYLAB CBC - COMP BLD CT W/AUTO DIFF [HEME] DAILYLAB 08/21/20 05:00 BMP - BASIC METABOLIC PANEL [CHEM] DAILYLAB CBC - COMP BLD CT W/AUTO DIFF [HEME] DAILYLAB 08/22/20 05:00 BMP - BASIC METABOLIC PANEL [CHEM] DAILYLAB CBC - COMP BLD CT W/AUTO DIFF [HEME] DAILYLAB Subjective - Subjective Patient Reports: Feeling Better Objective Vital Signs: Vital Signs - 24 hr 08/17/20 08/18/20 08/18/20 16:00 00:20 08:00 Temperature 36.4 C L 36.5 C 36.5 C Heart Rate [ 76 91 93 Brachial] Respiratory 20 18 20 Rate Blood Pressure 163/67 H [Left Brachial artery] Blood Pressure 154/71 H 170/79 H [Right Brachial artery] O2 Saturation 98 95 99 Oxygen O2 Source Room air I&O (Last 24 Hrs): Intake and Output Totals x24h 08/16/20 08/17/20 08/18/20 23:59 23:59 23:59 Intake Total 2210 3276.667 1640.000 Output Total 750 2635 1950 Balance 1460 641.667 -310.000 General: Alert, Cooperative, No acute distress HEENT: Atraumatic Neck: Supple Lymphatic: no adenopathy Neuro: Alert, Non Focal Cardiovascular: Regular rate, Normal S1, Normal S2 Respiratory: Chest non-tender, No respiratory distress, Breath sounds nml Abdomen: Normal bowel sounds, Soft, No tenderness Extremities: Normal pulses - Results Results: Laboratory Results WBC 11.1 x10^3/uL (4.8-10.8) H 08/18/20 05:10 RBC 3.03 10^6/uL (4.70-6.10) L 08/18/20 05:10 RBC 3.05 10^6/uL (4.70-6.10) L 08/18/20 05:10 Hgb 9.4 g/dL (14.0-18.0) L 08/18/20 05:10 Hct 27.8 % (42.0-52.0) L 08/18/20 05:10 MCV 91.7 fL (80.0-94.0) 10/27/20 05:10 MCH 31.0 pg (27.0-31.0) 08/18/20 05:10 MCHC 33.8 g/dL (32.0-36.0) 08/18/20 05:10 RDW 12.7 % (12.0-15.0) 08/18/20 05:10 Plt Count 121 10^3/uL (130-450) L 08/18/20 05:10 MPV 9.1 fL (7.4-11.4) 08/18/20 05:10 Reticulocyte % (Auto) 2.33 % (0.5-2.3) H 08/18/20 05:10 Neut # (Auto) 8.4 10^3/uL (1.5-6.6) H 08/18/20 05:10 Lymph # (Auto) 1.7 10^3/uL (1.5-3.5) 08/18/20 05:10 [place] # (Auto) 0.7 10^3/uL (0.0-1.0) 08/18/20 05:10 Eos # (Auto) 0.2 10^3/uL (0.0-0.7) 08/18/20 05:10 Baso # (Auto) 0.1 10^3/uL (0.0-0.1) 08/18/20 05:10 Absolute Nucleated RBC 0.00 x10^3/uL 08/18/20 05:10 Nucleated RBC % 0.0 /100WBC 08/18/20 05:10 Absolute Retic 0.071 10^6/uL (0.020-0.110) 08/18/20 05:10 Sodium 138 mmol/L (135-145) 08/18/20 05:10 Potassium 4.5 mmol/L (3.5-5.0) 08/18/20 05:10 Chloride 106 mmol/L (101-111) 08/18/20 05:10 Carbon Dioxide 24 mmol/L (21-32) 08/18/20 05:10 Anion Gap 8.0 (6-13) 08/18/20 05:10 BUN 16 mg/dL (6-20) 08/18/20 05:10 Creatinine 0.7 mg/dL (0.6-1.2) 08/18/20 05:10 Estimated GFR (MDRD) 111 (>89) 08/18/20 05:10 Glucose 104 mg/dL (70-100) H 08/18/20 05:10 Calcium 8.5 mg/dL (8.5-10.3) 08/18/20 05:10 Iron 51 ug/dL (45-182) 08/18/20 05:10 TIBC 260 ug/dL (250-450) 08/18/20 05:10 % Saturation 20 % (20-50) 08/18/20 05:10 Transferrin 186 mg/dL (180-329) 08/18/20 05:10 Ferritin 120.3 ng/mL (23.9-336.2) 08/18/20 05:10 Total Bilirubin 1.1 mg/dL (0.2-1.0) H 08/15/20 17:25 AST 32 IU/L (10-42) 08/15/20 17:25 ALT 14 IU/L (10-60) 08/15/20 17:25 Alkaline Phosphatase 64 IU/L (42-121) 08/15/20 17:25 Lactate Dehydrogenase 142 IU/L (91-225) 08/18/20 05:10 Total Protein 7.9 g/dL (6.7-8.2) 08/15/20 17:25 Albumin 4.5 g/dL (3.2-5.5) 08/15/20 17:25 Globulin 3.4 g/dL (2.1-4.2) 08/15/20 17:25 Albumin/Globulin Ratio 1.3 (1.0-2.2) 08/15/20 17:25 Lipase 22 U/L (22-51) 08/15/20 17:25 Vitamin B12 424 pg/mL (180-914) 08/18/20 05:10 Urine Color YELLOW 08/18/20 11:30 Urine Clarity CLEAR (CLEAR) 08/18/20 11:30 Urine pH 7.0 PH (5.0-7.5) 08/18/20 11:30 Ur Specific [place] 1.020 (1.002-1.030) 08/18/20 11:30 Urine Protein NEGATIVE mg/dL (NEGATIVE) 08/18/20 11:30 Urine Glucose (UA) NEGATIVE mg/dL (NEGATIVE) 08/18/20 11:30 Urine Ketones TRACE mg/dL (NEGATIVE) 08/18/20 11:30 Urine Occult Blood NEGATIVE (NEGATIVE) 08/18/20 11:30 Urine Nitrite NEGATIVE (NEGATIVE) 08/18/20 11:30 Urine Bilirubin NEGATIVE (NEGATIVE) 08/18/20 11:30 Urine Urobilinogen 0.2 (NORMAL) E.U./dL (NORMAL) 08/18/20 11:30 Ur Leukocyte Esterase NEGATIVE (NEGATIVE) 08/18/20 11:30 Urine RBC None Seen /HPF (0-5) 08/18/20 11:30 Urine WBC 0-3 /HPF (0-3) 08/18/20 11:30 Ur Squamous Epith Cells NONE SEEN (<= Few) 08/18/20 11:30 Urine Bacteria None Seen /HPF (None Seen) 08/18/20 11:30 Urine Culture Comments NOT INDICATED 08/18/20 11:30 Sepsis Event Note (H) - Evaluation Current Stage of Sepsis: Ruled out ABX Reporting Has patient been on IV antibiotics over the past 48 hours?: No Current Medications - Current Medications Current Medications: Active Medications Acetaminophen (Tylenol) 650 - 975 mg PO Q4HR PRN PRN Reason: PAIN Amantadine HCl (Symmetrel) 100 mg PO BID [facility] Last Admin: 08/18/20 08:23 Dose: 100 mg Documented by: Amlodipine Besylate (Norvasc) 5 mg PO DAILY [facility] Ascorbic Acid (Vitamin C) 1,000 mg PO DAILY [facility] Last Admin: 08/18/20 08:23 Dose: 1,000 mg Documented by: Aspirin (Stephenie) 325 mg PO BIDWM [facility] Last Admin: 08/18/20 08:20 Dose: 325 mg Documented by: Atorvastatin Calcium (Lipitor) 10 mg PO QPM [facility] Last Admin: 08/17/20 20:40 Dose: 10 mg Documented by: Calcium Carbonate/Glycine (Tums) 500 mg PO TID [facility] Last Admin: 08/18/20 05:47 Dose: 500 mg Documented by: Carbidopa/Levodopa (Sinemet 10 Mg/100 Mg) 1 tab PO QID [facility] Cholecalciferol (Vitamin D3) 25 mcg PO DAILY [facility] Last Admin: 08/18/20 08:23 Dose: 25 mcg Documented by: Docusate Sodium (Colace 250mg Capsule) 250 - 500 mg PO DAILY [facility] Last Admin: 08/18/20 08:25 Dose: 250 mg Documented by: Ketorolac Tromethamine (Toradol Inj (30mg)) 30 mg IVP Q6HR PRN PRN Reason: PAIN Stop: 08/20/20 20:33 Last Admin: 08/18/20 00:34 Dose: 30 mg Documented by: Magnesium Oxide (Mag Ox) 400 mg PO DAILYWM [facility] Last Admin: 08/18/20 08:21 Dose: 400 mg Documented by: Morphine Sulfate (Morphine (Carpuject)) 2 mg IVP Q2HR PRN PRN Reason: Pain 8 to 10 Last Admin: 08/16/20 06:42 Dose: 2 mg Documented by: Multivitamins/Minerals (Theragran M) 1 tab PO DAILYWM [facility] Last Admin: 08/18/20 08:21 Dose: 1 tab Documented by: Non-Formulary Medication (Carbidopa/Levodopa/Entacapone [Carbidopa-Levodopa 200 Mg-Enta]) 1 each PO 5XD [facility] Vsaln-9-Pqcf Ethyl Esters (Lovaza) 1 gm PO DAILY [facility] Last Admin: 08/18/20 08:25 Dose: 1 gm Documented by: Ondansetron HCl (Zofran Odt) 4 mg TL Q6HR PRN PRN Reason: Nausea / Vomiting Ondansetron HCl (Zofran Inj) 4 mg IVP Q6HR PRN PRN Reason: Nausea / Vomiting Ondansetron HCl (Zofran Inj) 4 mg IVP Q6HR PRN PRN Reason: Nausea / Vomiting Oxycodone HCl (Roxicodone) 5 mg PO Q4HR PRN PRN Reason: PAIN Last Admin: 08/17/20 10:54 Dose: 5 mg Documented by: Polyethylene Glycol (Miralax) 17 gm PO DAILY [facility] Last Admin: 08/18/20 08:27 Dose: Not Given Documented by: Prochlorperazine Edisylate (Compazine Inj) 10 mg IVP Q6HR PRN PRN Reason: Nausea / Vomiting Senna (Senokot) 8.6 - 17.2 mg PO DAILY [facility] Last Admin: 08/18/20 08:26 Dose: 8.6 mg Documented by: Sertraline HCl (Zoloft) 25 mg PO DAILY [facility] Last Admin: 08/18/20 08:39 Dose: 25 mg Documented by: Sodium Chloride (Normal Saline Flush 0.9%) 10 ml IVP PRN PRN PRN Reason: NEEDED PER PROVIDER ORDERS Last Admin: 08/17/20 10:53 Dose: 10 ml Documented by: Sodium Chloride (Normal Saline Flush 0.9%) 10 ml IVP 0100,0900,1700 [facility] Last Admin: 08/18/20 08:29 Dose: Not Given Documented by: Sodium Chloride (Normal Saline Flush 0.9%) 10 ml IVP PRN PRN PRN Reason: NEEDED PER PROVIDER ORDERS Amantadine HCl [Amantadine] 100 mg PO BID 08/15/20 Ascorbic Acid [Vitamin C] 1,000 mg PO DAILY 08/16/20 Carbidopa/Levodopa/Entacapone [Kxhsqocce-Vipveolp-Tbol 200 mg] 1 each PO QID 08/16/20 Cholecalciferol (Vitamin D3) [Vitamin D3] 1 cap PO DAILY 08/16/20 Ibuprofen 200 - 400 mg PO DAILY PRN 08/16/20 Magnesium Oxide [Magnesium] 500 mg PO DAILY 08/16/20 Naltrexone [Naltrexone Base Monohydrate] 4.5 mg PO QPM 08/16/20 [place]-3/Dha/Epa/Fish Oil [Fish Oil 1,000 mg Softgel] 1 cap PO DAILY 08/16/20 Sertraline [Zoloft] 25 mg PO DAILY 08/16/20 Simvastatin 20 mg PO QPM 08/16/20 Vit B Comp No.3/Folic/C/Biotin [Nephro-Moises Rx Tablet] 1 tab PO DAILY 08/16/20
[2020-08-18] MEDS: amLODIPine 5 MG TABLET PO SCH (14:59)
[2020-08-18] MEDS ORDERED: CARBIDOPA/LEVODOPA 10 MG/100 MG TABLET PO SCH (17:00)
[2020-08-18 20:27] LABS: HGB - HEMOGLOBIN 9.3 g/dL (14.0-18.0)
[2020-08-18] MEDS: ATORVASTATIN 10 MG TABLET PO SCH (20:50)
[2020-08-19] MEDS: SODIUM CHLORIDE FLUSH 0.9% 10 ML SYRINGE IVP SCH ×2 (02:42→10:14)
[2020-08-19] MEDS: LEVODOPA PO SCH ×3 (04:42→13:02)
[2020-08-19] MEDS: ENTACAPONE PO SCH ×3 (04:42→13:02)
[2020-08-19] MEDS: CARBIDOPA PO SCH ×3 (04:42→13:02)
[2020-08-19] MEDS: [UNRECOGNIZED DRUG - OTHER] PO SCH ×3 (04:42→13:02)
[2020-08-19 05:42] LABS: BASOPHILS # (AUTO) 0.1 10^3/uL (0.0-0.1); BASOPHILS % (AUTO) 0.4 %; EOSINOPHILS # (AUTO) 0.1 10^3/uL (0.0-0.7); EOSINOPHILS % (AUTO) 1.1 %; HGB - HEMOGLOBIN 10.3 g/dL (14.0-18.0); LYMPHOCYTES # (AUTO) 1.7 10^3/uL (1.5-3.5); LYMPHOCYTES % (AUTO) 14.5 %; MEAN CORPUSCULAR HEMOGLOBIN 30.7 pg (27.0-31.0); MEAN CORPUSCULAR VOLUME 90.2 fL (80.0-94.0); MEAN PLATELET VOLUME 9.4 fL (7.4-11.4); MONOCYTES # (AUTO) 0.8 10^3/uL (0.0-1.0); MONOCYTES % (AUTO) 6.7 %; NEUTROPHILS # (AUTO) 8.7 10^3/uL (1.5-6.6); NEUTROPHILS % (AUTO) 76.5 %; PLT - PLATELET COUNT 172 10^3/uL (130-450); RED BLOOD COUNT 3.36 10^6/uL (4.70-6.10); RED CELL DISTRIBUTION WIDTH 12.7 % (12.0-15.0); WHITE BLOOD COUNT 11.4 x10^3/uL (4.8-10.8)
[2020-08-19 05:53] LABS: CREATININE 0.6 mg/dL (0.6-1.2); MAGNESIUM 1.9 mg/dL (1.7-2.8); PHOSPHORUS 2.1 mg/dL (2.5-4.6)
[2020-08-19] MEDS: oxyCODONE 5 MG TABLET PO PRN (07:00)
[2020-08-19] MEDS: CALCIUM CARBONATE CHEW 500 MG TABLET PO SCH ×2 (07:02→13:02)
[2020-08-19] MEDS: polyethylene glycoL 3350 17 GM PACKET PO SCH (10:11)
[2020-08-19] MEDS: NEUTRA-PHOS 250 MG TABLET PO SCH ×2 (10:11→13:01)
[2020-08-19] MEDS: AMANTADINE 100 MG CAPSULE PO SCH (10:11)
[2020-08-19] MEDS: MULTIVITAMIN W/MINERALS TABLET PO SCH (10:12)
[2020-08-19] MEDS: SERTRALINE 25 MG TABLET PO SCH (10:12)
[2020-08-19] MEDS: ASPIRIN 325 MG TABLET PO SCH (10:12)
[2020-08-19] MEDS: MAGNESIUM OXIDE 400 MG TABLET PO SCH (10:12)
[2020-08-19] MEDS: CHOLECALCIFEROL 25 MCG TABLET PO SCH (10:12)
[2020-08-19] MEDS: ASCORBIC ACID CHEW 500 MG TABLET PO SCH (10:13)
[2020-08-19] MEDS: OMEGA-3 ACID ETHYL ESTERS 1 GM CAPSULE PO SCH (10:13)
[2020-08-19] MEDS: DOCUSATE SODIUM 250 MG CAPSULE PO SCH (10:13)
[2020-08-19] MEDS: SENNA 8.6 MG TABLET PO SCH (10:13)
[2020-08-19] MEDS: amLODIPine 5 MG TABLET PO SCH (10:13)
--- NOTE | 2020-08-19 10:44 | Discharge Plan ---
"Discharge Plan for SNF / [facility] - Discharge Plan And Transition Orders Problem Reviewed?: Yes Disposition: 03 SNF DC/Xfer Condition: Stable Allergies and Adverse Reactions: Allergies Allergy/AdvReac Type Severity Reaction Status Date / Time No Known Drug Allergies Allergy Verified 08/15/20 17:02 Health Concerns: status post of left hip repair Plan of Treatment: continue PT/OT in SNF, continue Aspirin as DVT Prophylaxis, followup with orthopedics office in two weeks or early as needed. Care Goals: stabilization, and improvement/healing of his left hip fracture Assessment: discussed the care plan with pt, he understood and agreed - SNF / [facility] Transition Orders Admit to (Facility): [facility] Under the care of (Name): Medical provider of [facility] Discharge Diagnosis: status post of left hip repair, anemia, parkinson disease, malnutrition, HTN Medicare Certification Statement: I certify that [facility] care is medically necessary on a continuing basis for any of the conditions for which she/he is receiving care during hospitalization. Notify PCP of admission and forward orders to primary provider for signature. Weight on admission and: Daily Call PCP immediately if weight increases by: 2 kg Other Notification Orders: Call PCP immediately if patient develops dyspnea, chest pain/tightness or edema. House Bowel Program: Yes Additional Bowel Program Orders: If no BM after 2 days, nurse may give M.O.M. 30ml PO PRN and/or ducolax Supp 1 GA and/or SPENCER 250mg P.O., and/or senna 1-2 tabs PO. On day 3 nurse may give repeat above order until residents constipation is resolved. Annual Influenza Vaccine (between Jun 23 and January 20): Yes Two-step PPD per [facility] [phone] or approved exception documents: Yes Treatments & Other Orders: continue PT/OT in SNF, continue Aspirin as DVT Prophylaxis, followup with orthopedics office in two weeks or early as needed. Medication Orders: PLEASE REFER TO THE DISCHARGE MEDICATION LIST. Insulin Orders?: No - Medications New Prescriptions: oxyCODONE [Roxicodone] 5 mg PO Q4HR PRN #20 tablet PRN Reason: Pain Aspirin [Stephenie] 325 mg PO BIDWM #30 tablet Calcium Carbonate [Tums (Calcium Carbonate 500mg)] 500 mg PO BID #30 tablet - Diet Type: Geriatric Texture: Regular Liquids: Thin May have monthly special meal: Yes - Therapies | Activity Therapy: Evaluation | Treat if indicated: PT, OT Rehabilitation Potential: Maximize functional status Activity: Activity as Tolerated"
--- NOTE | 2020-08-19 12:03 | DISCHARGE SUMMARY ---
"Discharge Summary Admit Date: 08/15/20 Discharge Date: 08/19/20 Discharging Provider: Dajuan Katz Primary Care Provider: Dr. Ramirez Condition at Discharge: Stable Discharge Disposition: SNF DC/Xfer Discharge Facility Name: [facility] - DIAGNOSES Discharge Diagnoses with Status of Each Condition: (1) Acute blood loss as cause of postoperative anemia resolved, HGB is steady increasing. HGB was 10.3 at the discharge (2) Hip fracture, left pt had left hip repair by orthopedics surgeon. physical therapist and occupational therapist Evaluated and treated pt. pt was d/c to [facility]. pt Continue aspirin twice daily for DVT prophylaxis, continue PT/OT in SNF, followup with orthopedics in two weeks or early as needed. (3) Parkinson disease stable, resume home Medications (4) Malnutrition stable, pt is prescribed Calcium 500 mg, continue home Vitamin D 800 international units. (5) Hypertension stable (6) Urine retention Resolved. - HPI History of Present Illness: refer from Dr. Quinn's HPI on 08/15/2020 75-year-old white male who has Parkinson's disease. He tripped and fell in a parking lot while grocery shopping today. Fell onto his left side and had immediate left hip pain. There is no syncope. On review of systems there is no valvular heart disease, chest pain, orthopnea, recent change in cardiovascular status. He does not have any history of atrial fibrillation. He denies kidney disease or lung disease. However, he is underweight. Has not been doing well for a couple of years from a physical standpoint. In the emergency room his evaluated by Dr. Car. He is hypertensive at 181/85. Oxygenating normally on room air. He is 99%. Respiratory rate is 30, heart rate is 86, temperature is 36.5. On physical exam no major findings on physical exam other than the left hip unable to be moved. Because he had his head head CT was done. Cervical spine CT was done. Chest x-ray, hip and pelvis x-ray were done. He has an impacted comminuted fracture of the intertrochanteric left femoral neck. Avulsion fracture of the lesser trochanter and likely an additional fracture of the greater trochanter. Dr. Ta Gutierrez, orthopedics, has been informed. He would like the patient admitted to our service and he will consult. - CONSULTS | PROCEDURES Consultations: Dr. Gutierrez Procedures: left hip repair - HOSPITAL COURSE Hospital Course: pt tripped and fell in a parking lot, pt was found to have Left hip fracture. Patient was consulted with orthopedic surgeon. Patient had a left hip repair in the hospital. Patient continues to have physical therapist occupational therapist in the hospital. Patient did not develop significant complication after surgery. After 3 days s/p left hip repair in hospital, patient was discharged to SNF. - ALLERGIES Allergies/Adverse Reactions: Allergies Allergy/AdvReac Type Severity Reaction Status Date / Time No Known Drug Allergies Allergy Verified 08/15/20 17:02 - MEDICATIONS Home Medications: Ambulatory Orders Medication Instructions Recorded Confirmed Amantadine HCl [Amantadine] 100 mg PO BID 08/15/20 08/16/20 Ascorbic Acid [Vitamin C] 1,000 mg PO DAILY 08/16/20 08/16/20 Carbidopa/Levodopa/Entacapone 1 each PO 5XD 08/16/20 08/18/20 [Carbidopa-Levodopa 200 mg-Enta] Cholecalciferol (Vitamin D3) 1 cap PO DAILY 08/16/20 08/16/20 [Vitamin D3] Ibuprofen 200 - 400 mg PO DAILY PRN 08/16/20 08/16/20 Magnesium Oxide [Magnesium] 500 mg PO DAILY 08/16/20 08/16/20 Naltrexone [Naltrexone Base 4.5 mg PO QPM 08/16/20 08/16/20 Monohydrate] Grant-3/Dha/Epa/Fish Oil [Fish Oil 1 cap PO DAILY 08/16/20 08/16/20 1,000 mg Softgel] Sertraline [Zoloft] 25 mg PO DAILY 08/16/20 08/16/20 Simvastatin 20 mg PO QPM 08/16/20 08/16/20 Vit B Comp No.3/Folic/C/Biotin 1 tab PO DAILY 08/16/20 08/16/20 [Nephro-Moises Rx Tablet] Aspirin [Stephenie] 325 mg PO BIDWM #30 tablet 08/19/20 Calcium Carbonate [Tums (Calcium 500 mg PO BID #30 tablet 08/19/20 Carbonate 500mg)] oxyCODONE [Roxicodone] 5 mg PO Q4HR PRN #20 tablet 08/19/20 - PHYSICAL EXAM AT DISCHARGE General Appearance: positive: No acute distress, Alert. negative: Lethargic Eyes Bilateral: positive: Normal inspection, PERRL, No lid inflammation ENT: positive: ENT inspection nml, No signs of dehydration. negative: Purulent nasal drainage Neck: positive: Nml inspection, Thyroid nml, Trachea midline. negative: Thyromegaly, Tracheal deviation Respiratory: positive: Chest non-tender, No respiratory distress, Breath sounds nml. negative: Wheezes, Rales, Rhonchi Cardiovascular: positive: Regular rate & rhythm, No murmur. negative: Tachycardia, Bradycardia, Systolic murmur, Diastolic murmur Peripheral Pulses: positive: 2+ Abdomen: positive: Non-tender, Nml bowel sounds, No distention. negative: Tenderness, Guarding, Rebound Back: positive: Nml inspection Skin: positive: Color nml, No rash, Warm, Dry. negative: Cyanosis, Diaphoresis, Pallor Extremities: positive: Non-tender, Nml appearance. negative: Pedal edema Neurologic/Psychiatric: positive: Oriented x3, Sensation nml, Mood/affect nml. negative: Weakness, Sensory loss, Facial droop, Slurred/abnml speech, Depressed mood/affect - LABS Result Diagrams: 08/19/20 05:15 08/19/20 05:15 - SEPSIS Current Stage of Sepsis: Ruled out - FOLLOW UP Follow Up: continue PT/OT in SNF, continue Aspirin as DVT Prophylaxis, followup with orthopedics office in two weeks or early as needed. - TIME SPENT Time Spent in Discharge (Minutes): 30"
--- NOTE | 2020-08-19 13:12 | PROVIDER PROGRESS NOTE ---
Subjective - Prog Note Date Prog Note Date: 08/19/20 Prog Note Time: 13:11 - Subjective Pt reports feeling: Improved Objective - Vital Signs/Intake & Output Vital Signs: Vital Signs x48h Temp Pulse Resp BP Pulse Ox 08/19/20 11:02 111/83 H 08/19/20 08:00 37 C 80 20 103/50 L 99 Intake & Output: Intake & Output 08/16/20 08/17/20 08/18/20 08/19/20 23:59 23:59 23:59 23:59 Intake Total 2210 3276.667 2235.000 120 Output Total 750 2635 2400 1375 Balance 1460 641.667 -165.000 -1255 - Lab Results Fish Bones: 08/19/20 05:15 08/19/20 05:15 Other Labs: Lab Results x24hrs 08/19/20 08/19/20 08/18/20 Range/Units 05:15 05:15 19:55 WBC 11.4 H (4.8-10.8) x10^3/uL RBC 3.36 L (4.70-6.10) 10^6/uL Hgb 10.3 L 9.3 L (14.0-18.0) g/dL Hct 30.3 L 26.9 L (42.0-52.0) % MCV 90.2 (80.0-94.0) fL MCH 30.7 (27.0-31.0) pg MCHC 34.0 (32.0-36.0) g/dL RDW 12.7 (12.0-15.0) % Plt Count 172 (130-450) 10^3/uL MPV 9.4 (7.4-11.4) fL Neut # (Auto) 8.7 H (1.5-6.6) 10^3/uL Lymph # (Auto) 1.7 (1.5-3.5) 10^3/uL Hamlin # (Auto) 0.8 (0.0-1.0) 10^3/uL Eos # (Auto) 0.1 (0.0-0.7) 10^3/uL Baso # (Auto) 0.1 (0.0-0.1) 10^3/uL Absolute Nucleated RBC 0.00 x10^3/uL Nucleated RBC % 0.0 /100WBC Sodium 142 (135-145) mmol/L Potassium 3.6 (3.5-5.0) mmol/L Chloride 109 (101-111) mmol/L Carbon Dioxide 24 (21-32) mmol/L Anion Gap 9.0 (6-13) BUN 14 (6-20) mg/dL Creatinine 0.6 (0.6-1.2) mg/dL Estimated GFR (MDRD) 132 (>89) Glucose 111 H (70-100) mg/dL Calcium 9.0 (8.5-10.3) mg/dL Phosphorus 2.1 L (2.5-4.6) mg/dL Magnesium 1.9 (1.7-2.8) mg/dL Coronavirus (PCR) 08/17/20 Range/Units 09:00 WBC (4.8-10.8) x10^3/uL RBC (4.70-6.10) 10^6/uL Hgb (14.0-18.0) g/dL Hct (42.0-52.0) % MCV (80.0-94.0) fL MCH (27.0-31.0) pg MCHC (32.0-36.0) g/dL RDW (12.0-15.0) % Plt Count (130-450) 10^3/uL MPV (7.4-11.4) fL Neut # (Auto) (1.5-6.6) 10^3/uL Lymph # (Auto) (1.5-3.5) 10^3/uL Hamlin # (Auto) (0.0-1.0) 10^3/uL Eos # (Auto) (0.0-0.7) 10^3/uL Baso # (Auto) (0.0-0.1) 10^3/uL Absolute Nucleated RBC x10^3/uL Nucleated RBC % /100WBC Sodium (135-145) mmol/L Potassium (3.5-5.0) mmol/L Chloride (101-111) mmol/L Carbon Dioxide (21-32) mmol/L Anion Gap (6-13) BUN (6-20) mg/dL Creatinine (0.6-1.2) mg/dL Estimated GFR (MDRD) (>89) Glucose (70-100) mg/dL Calcium (8.5-10.3) mg/dL Phosphorus (2.5-4.6) mg/dL Magnesium (1.7-2.8) mg/dL Coronavirus (PCR) NEGATIVE - Other Results/Comments Other Results/Comments: EXAM: Dressing intact. N/V ok distally. Sitting up in chair Sepsis Event Note (H) - Evaluation Current Stage of Sepsis: Ruled out Assessment/Plan - Problem List (1) Hip fracture, left Impression: Satis post op0 PLAN: To SNF today. Follow up in ortho in 2 weeks. Qualifiers: Encounter type: subsequent encounter Fracture type: closed Qualified Code(s): S72.002A - Fracture of unspecified part of neck of left femur, initial encounter for closed fracture
[2020-08-19 15:11] VITALS: BP 131/57
== END 2020-08-19 14:00 | DRG 481 ==
LOC: EDUNIT# → ED 16:48 → MS2 19:35
PROVIDERS: ADMIT Specialist; ATTEND Nurse Practitioner Gerontology
PROC: 0QS734Z Reposition Left Upper Femur with Internal Fixation Device, Percutaneous Approach (ICD-10-PCS; principal; 2020-08-16 07:42)
DX: S72.142A Displaced intertrochanteric fracture of left femur, initial encounter for closed fracture (principal); D62 Acute posthemorrhagic anemia; E46 Unspecified protein-calorie malnutrition; S72.122A Displaced fracture of lesser trochanter of left femur, initial encounter for closed fracture; W01.0XXA Fall on same level from slipping, tripping and stumbling without subsequent striking against object, initial encounter; Y92.481 Parking lot as the place of occurrence of the external cause; G20 Parkinson's disease; I10 Essential (primary) hypertension; R33.9 Retention of urine, unspecified; Z86.73 Personal history of transient ischemic attack (TIA), and cerebral infarction without residual deficits; Z87.891 Personal history of nicotine dependence; K59.09 Other constipation; T42.8X5A Adverse effect of antiparkinsonism drugs and other central muscle-tone depressants, initial encounter; F32.9 Major depressive disorder, single episode, unspecified; Z20.828 Contact with and (suspected) exposure to other viral communicable diseases; R68.2 Dry mouth, unspecified; S09.90XA Unspecified injury of head, initial encounter
CPT/HCPCS: 36415; 70450; 71045; 72125; 73502; 80048; 80053; 81001; 82607; 82728; 83540; 83615; 83690; 83735; 84100; 84466; 85014; 85018; 85025; 85045; 93005; 96374; 96376; 97110; 97116; 97161; 97166; 99284; 99285; A9270; J0131; J1170; J1650; J7120; U0004; 87086

== ENCOUNTER 2020-09-25 16:15 | Outpatient (CLI) | payer MEDICARE, OTHER ==
--- NOTE | 2020-09-25 16:14 | XRAY Report ---
PROCEDURE: Hips 2V BILAT INDICATIONS: POSTOPERATIVE CARE FOLLOW UP ON LT HIP TECHNIQUE: 2 views of the hip were acquired. COMPARISON: X-ray hip 08/15/2020 FINDINGS: Bones: There has been interval fixation of right femoral neck fracture. There is relatively good kylie omic alignment and hardware appears intact. No suspicious bony lesions. The visualized pelvic ring a ppears intact. Soft tissues: No suspicious soft tissue calcifications or masses. IMPRESSION: Status post left femoral fixation. Reviewed by: Valerie Mix MD on 09/25/2020 4:13 PM PST Approved by: Valerie Mix MD on 09/25/2020 4:13 PM PST Station ID: [id number]
== END 2020-09-25 23:59 | disposition home or self-care (01) ==
LOC: DI.N 16:15
PROVIDERS: ATTEND Physician Assistant
DX: S72.002D Fracture of unspecified part of neck of left femur, subsequent encounter for closed fracture with routine healing (principal); Z48.89 Encounter for other specified surgical aftercare
CPT/HCPCS: 73521

== ENCOUNTER 2020-10-05 11:45 | Outpatient (CLI) | payer MEDICARE, OTHER | END 2020-10-05 23:59 | disposition home or self-care (01) | LOC: LAB.R 11:45 | PROVIDERS: ATTEND Internal Medicine | DX: S31.829A Unspecified open wound of left buttock, initial encounter (principal) | CPT/HCPCS: 87070; 87181; 87205 ==